=== PATIENT | female | born 1945 | race African-American/Black ===

== ENCOUNTER 2024-04-03 09:16 | Inpatient (IN) | payer OTHER ==
[~2024-04-03] VITALS: Ht 162.6 cm; Wt 98.7 kg
--- NOTE | 2024-04-03 11:06 | ED.PDOC ---
General HPI Comments 79 Y F, BIBA presents to the ED with CC of urinary faculty and lower extremity swelling. Patient states, that she has been experiencing bilateral leg swelling with associated symptoms of difficulty emptying her bladder for days. Patient currently takes bumetanide 2mg daily, denies any other medications. Patient states her lower extremities have become so swollen that she is unable to walk due to their weight. Patient denies fever, cough, chest pain, or N/V/D. Chief Complaint: Urinary Time Seen by MD: 10:50 Primary Care Provider: DEMARCUS Hurt notes: Nurses Notes, Medications, Allergies Allergies: Coded Allergies: NO KNOWN ALLERGIES (Unverified , 04/17/19) Home Meds No Active Prescriptions or Reported Meds Information Source: Patient, Emergency Med Personnel Mode of Arrival: EMS Severity: Moderate Timing: Days Duration: Since onset Prehospital treatment: None Onset: Spontaneous Symptoms: Inability to void History of: None Location: None Modifying factors: None associated signs and symptoms: Dysuria, Inability to Void Past Medical History Past Medical History (Other): Chronic Lower extremity edema, hypothyroid Surgical History: Hysterectomy Surgical History (Other): Thyroid tumor removal Family History Family History: Reviewed,noncontributory to illness, No family hx of Cancer, No family hx of DM, No family hx of Heart jordyn, No family hx of HTN, No family hx ofKidney jordyn, No family hx of Liver jordyn, No family hx of Lung jordyn, No family hx of Stroke Social History Smoker: Non-Smoker Alcohol: Denies ETOH Use Drugs: Denies Drug Use Lives In: Home Constitutional: denies: chills, diaphoresis, fatigue, fever, malaise, sweats, weakness, others EENTM: denies: blurred vision, double vision, ear bleeding, ear discharge, ear drainage, ear pain, ear ringing, eye pain, eye redness, hearing loss, mouth pain, mouth swelling, nasal discharge, nose bleeding, nose congestion, nose pain, photophobia, tearing, throat pain, throat swelling, voice changes, others Respiratory: denies: cough, hemoptysis, orthopnea, SOB at rest, shortness of breath, SOB with excertion, stridor, wheezing, others Cardiovascular: denies: chest pain, dizzy spells, diaphoresis, Dyspnea on exertion, edema, irregular heart beat, left arm pain, lightheadedness, palpitations, PND, syncope, others Gastrointestinal: denies: abdomen distended, abdominal pain, blood streaked bowels, constipated, diarrhea, dysphagia, difficulty swallowing, hematemesis, melena, nausea, poor appetite, poor fluid intake, rectal bleeding, rectal pain, vomiting, others Genitourinary: reports: dysuria; denies: abnormal vagina bleeding, burning, dyspareunia, flank pain, frequency, hematuria, incontinence, pain, , vagina discharge, urgency, others Neurological: denies: dizziness, fainting, headache, left sided numbness, left sided weakness, numbness, paresthesia, pre-existing deficit, right sided numbnes s, right sided weakness, seizure, speech problems, tingling, tremors, weakness, others Musculoskeletal: reports: others (ELENA LEG SWELLING) Integumetry: denies: bruises, change in color, change in hair/nails, dryness, laceration, lesions, lumps, rash, wounds, others Hematologic/Lymphatic: denies: anemia, blood clots, easy bleeding, easy bruising, swollen glands, others Endocrine: denies: excessive hunger, excessive sweating, excessive thirst, excessive urination, flushing, intolerance to cold, intolerance to heat, unexplained weight gain, unexplained weight loss, others Psychiatric: denies: anxiety, bipolar disorder, depression, hopeless, panic disorder, schizophrenia, sleepless, suicidal, others All Other Systems: Reviewed and Negative Physical Exam General Appearance: No Apparent Distress HEENT: Normal ENT Inspection Neck: Full Range of Motion, Normal Inspection Respiratory: Lungs Clear, No Accessory Muscle Use, No Respiratory Distress, Normal Breath Sounds Cardiovascular: No JVD, Regular Rate/Rhythm Breast Exam: Deferred Gastrointestinal: Non Tender, Soft Genitalia: Deferred Pelvic: Deferred Rectal: Deferred Extremities: Leg edema, Pedal edema, Other (4+ pitting edema bilateral lower extremities) Neurologic: Alert (Oriented x4), Normal Affect, Normal Mood, Other (Able to move all extremities. No gross focal deficit.) Cerebellar Function: NOT DONE Reflexes: NOT DONE Skin: Dry, Normal Color, Warm Lymphatic: NOT DONE Was a procedure done? Was a procedure done?: No Differential Diagnosis Kidney stone (Female): Renal failure, Urinary obstruction Other Differential Diagnosis Bladder outlet obstruction, UTI, renal failure, CHF, liver disease, DVT, lymphedema, among others X-Ray, Labs, Meds, VS Vital Signs Date Time Temp Pulse Resp B/P (MAP) Pulse Ox O2 Delivery O2 Flow Rate FiO2 04/03/24 12:42 152/83 04/03/24 12:12 155/73 04/03/24 11:57 98.7 97 17 152/79 (103) 98 98.7 04/03/24 11:57 97 18 98 Room Air 04/03/24 09:18 98.2 105 18 156/85 (108) 98 Lab Test 04/03/24 11:54 Range/Units White Blood Count 7.9 4.4-10.8 10^3/uL Red Blood Count 3.67 L 4.0-5.20 10^6/uL Hemoglobin 11.2 L 12.2-16.2 g/dL Hematocrit 34.5 L 36.0-46.0 % Mean Corpuscular Volume 94.0 80.0-100.0 fL Mean Corpuscular Hemoglobin 30.5 28.0-32.0 pg Mean Corpuscular Hemoglobin Concent 32.4 32.0-36.0 g/dL Red Cell Distribution Width 15.7 H 11.8-14.3 % Platelet Count 244 140-450 10^3/uL Mean Platelet Volume 8.5 6.9-10.8 fL Neutrophils (%) (Auto) 70.5 37.0-80.0 % Lymphocytes (%) (Auto) 21.8 10.0-50.0 % Monocytes (%) (Auto) 4.9 0.0-12.0 % Eosinophils (%) (Auto) 1.9 0.0-7.0 % Basophils (%) (Auto) 0.9 0.0-2.0 % Neutrophils # (Auto) 5.6 1.6-8.6 10 ^3/uL Lymphocytes # (Auto) 1.7 0.4-5.4 10 ^3/uL Monocytes # (Auto) 0.4 0-1.3 10 ^3/uL Eosinophils # (Auto) 0.2 0-0.8 10 ^3/uL Basophils # (Auto) 0.1 0-0.2 10 ^3/uL Nucleated Red Blood Cells 0.1 % Sodium Level 145 136-145 mmol/L Potassium Level 3.7 3.5-5.1 mmol/L Chloride Level 113 H 98-107 mmol/L Carbon Dioxide Level 26 20-31 mmol/L Anion Gap 6 5-15 Blood Urea Nitrogen 17 9-23 mg/dL Creatinine 0.76 0.550-1.02 mg/dL Glomerular Filtration Rate Calc 79 >90 mL/min BUN/Creatinine Ratio 22.4 H 10.0-20.0 Serum Glucose 116 H 74-106 mg/dL Calcium Level 9.7 8.7-10.4 mg/dL Total Bilirubin 0.3 0.2-1.0 mg/dL Aspartate Amino Transferase (AST) 23 13-40 U/L Alanine Aminotransferase (ALT) 20 7-40 U/L Alkaline Phosphatase 151 H 46-116 U/L B-Type Natriuretic Peptide 64.97 0-100 pg/mL Total Protein 5.9 5.7-8.2 g/dL Albumin 3.5 3.2-4.8 g/dL Current Medications Medications (Trade) Dose Ordered Sig/Teddy Route Start Time Stop Time Status Last Admin Bumetanide (Bumex Injection) 2 mg ONCE ONCE IV 04/03/24 11:00 04/03/24 11:01 DC 04/03/24 12:42 Bumetanide (Bumex Injection) 2 mg ONCE ONCE IV 04/03/24 12:15 04/03/24 12:16 DC 04/03/24 12:12 PROCEDURE(s): ABPL - CT AB PEL WO CON-NO ORAL OR IV REASON: urinary obstruction ORDER NUMBER(s): [id number], ACCESSION NUMBER(s): [id number] Exam: CT CT AB PEL WO CON-NO ORAL OR IV History: urinary obstruction Comparison Study: None Technique: Multidetector spiral CT of the abdomen and pelvis was performed from lung bases to pubic symphysis. Imaging was performed without IV contrast. Axial, coronal and sagittal multiplanar reformats were obtained from the axial data set by the technologist. Radiation dose : Abdomen/Pelvis: CTDIvol 23 mGy, DLP 1298 mGy*cm. Findings: Evaluation of solid organs is limited due to lack of intravenous contrast use. Lung Bases: Atelectasis and scarring in the lung bases. Liver: The liver is normal in size. No focal lesions. Gallbladder and biliary Tree: Sludge in the gallbladder. Spleen: Unremarkable Pancreas: The pancreas is grossly normal in appearance. Adrenal Glands: Unremarkable Kidneys: Punctate left lower pole renal calculus. No hydronephrosis. Bladder: Grossly unremarkable for degree of distention. Bowel: The stomach is grossly normal in appearance. Small bowel and colon are normal in caliber and distribution. The appendix is not visualized; however, no secondary findings of acute appendicitis identified. Ascites: Absent Lymphadenopathy: No mesenteric, retroperitoneal or periportal lymphadenopathy. Abdominal wall and Mesentery: Ventral hernia containing bowel. Vasculature: The visualized abdominal aorta is normal in size and caliber. Evaluation of abdominal and pelvic vessels is limited due to lack of intravenous contrast. Pelvic Organs: The uterus is surgically absent. Musculoskeletal: Dextroscoliosis with associated multilevel degenerative disease. Lucent lesion in the L2 vertebral body could represent a hemangioma. IMPRESSION: 1. Punctate nonobstructive left lower pole renal calculus. No hydronephrosis. Sludge in the gallbladder. Ventral hernia containing bowel. Possible hemangioma in the L2 vertebral body. This could be further evaluated with MRI of the lumbar spine with contrast. Radiation optimization: All CT scans at this facility use at least one of these dose optimization techniques: Automated exposure control mA and/or kV adjustment per patient size (includes targeted exams where dose is matched to clinical indication) or iterative reconstruction. HS:Y EDURE(s): BLDVT - BiLat Lower DVT REASON: edema ORDER NUMBER(s): [id number], ACCESSION NUMBER(s): [id number] Bilateral lower extremity venous duplex Clinical History: edema Comparison: None Technique: Duplex Doppler evaluation of the deep venous systems of both lower extremities from the common femoral veins to the popliteal veins including color Doppler and spectral/pulsed waveform analysis was performed. Findings: RIGHT SIDE: The common femoral vein demonstrates appropriate compressibility and waveform variability. There is compressibility/patency of the great saphenous vein at the proximal thigh. The femoral vein demonstrates appropriate compressibility and waveform variability. The deep femoral vein demonstrates appropriate compressibility and waveform v ariability. The popliteal vein demonstrates appropriate compressibility and waveform variability. There is normal compressibility at the tibioperoneal trunk. LEFT SIDE: The common femoral vein demonstrates appropriate compressibility and waveform variability. There is compressibility/patency of the great saphenous vein at the proximal thigh. The femoral vein demonstrates appropriate compressibility and waveform variability. The deep femoral vein demonstrates appropriate compressibility and waveform v ariability. The popliteal vein demonstrates appropriate compressibility and waveform variability. There is normal compressibility at the tibioperoneal trunk. Impression: 1. No right or left femoropopliteal venous thrombosis. HS:Y X-Ray, Labs, Meds, VS Comment 79-year-old female with a history of chronic lower extremity edema and thyroid disease brought in by EMS complaining of inability to ambulate due to severe l ower extremity edema, associated with difficulty emptying her bladder. Vitals remarkable for heart rate 105, BP 156/85 Exam remarkable for 4+ pitting edema bilateral lower extremities Rhythm strip independently interpreted by me: Sinus tach, rate 105, no ectopy. CT abdomen and pelvis: IMPRESSION: 1. Punctate nonobstructive left lower pole renal calculus. No hydronephrosis. Sludge in the gallbladder. Ventral hernia containing bowel. Possible hemangioma in the L2 vertebral body. This could be further evaluated with MRI of the lumbar spine with contrast. Lower extremity ultrasound negative for DVT CBC, CMP unremarkable for any abnormality of acute significance. Patient treated with the following in the ED: Bumex 2 mg IV On re-evaluation, patient denies pain and vitals are unremarkable. Plan is to admit the patient for diuresis and possible urology evaluation. Time of 1ST Reevaluation: 11:20 Reevaluation 1ST: Unchanged Patient Education/Counseling: Diagnosis, Treatment Family Education/Counseling: No Family Present Departure 1 Departure Time of Disposition: 12:54 Impression: Primary Impression: Lower extremity edema Disposition: 09 ADMITTED INPATIENT Admit to: Med Surg Condition: Fair e-Prescriptions No Active Prescriptions or Reported Meds Critical Care Note Critical Care Time?: No Stability Stability form required: No Heart Score Heart Score: Heart Score Response (Comments) Value History N/A 0 EKG N/A 0 Age N/A 0 Risk Factors N/A 0 Troponin N/A 0 Total 0 I personally scribed for CIARA TEIXEIRA MD ([email or web address]) on 04/03/24 at 11:06. Electronically submitted by Payal Cameron ([email or web address]). I personally scribed for CIARA TEIXEIRA MD ([email or web address]) on 04/03/24 at 11:31. Electronically submitted by Payal Cameron ([email or web address]). I personally scribed for CIARA TEIXEIRA MD ([email or web address]) on 04/03/24 at 14:02. Electronically submitted by Payal Cameron ([email or web address]). I personally scribed for CIARA TEIXEIRA MD ([email or web address]) on 04/03/24 at 16:49. Electronically submitted by Payal Cameron ([email or web address]). CIARA TEIXEIRA MD Apr 03, 2024 11:06
--- NOTE | 2024-04-03 11:46 | DVH ---
Bilateral lower extremity venous duplex Clinical History: edema Comparison: None Technique: Duplex Doppler evaluation of the deep venous systems of both lower extremities from the common femora l veins to the popliteal veins including color Doppler and spectral/pulsed waveform analysis was perf ormed. Findings: RIGHT SIDE: The common femoral vein demonstrates appropriate compressibility and waveform variability. There is compressibility/patency of the great saphenous vein at the proximal thigh. The femoral vein demonstrates appropriate compressibility and waveform variability. The deep femoral vein demonstrates appropriate compressibility and waveform variability. The popliteal vein demonstrates appropriate compressibility and waveform variability. There is normal compressibility at the tibioperoneal trunk. LEFT SIDE: The common femoral vein demonstrates appropriate compressibility and waveform variability. There is compressibility/patency of the great saphenous vein at the proximal thigh. The femoral vein demonstrates appropriate compressibility and waveform variability. The deep femoral vein demonstrates appropriate compressibility and waveform variability. The popliteal vein demonstrates appropriate compressibility and waveform variability. There is normal compressibility at the tibioperoneal trunk. Impression: 1. No right or left femoropopliteal venous thrombosis. HS:Y
--- NOTE | 2024-04-03 11:56 | DVH ---
Exam: CT CT AB PEL WO CON-NO ORAL OR IV History: urinary obstruction Comparison Study: None Technique: Multidetector spiral CT of the abdomen and pelvis was performed from lung bases to pubic symphysis. Imaging was performed without IV contrast. Axial, coronal and sagittal multiplanar reform ats were obtained from the axial data set by the technologist. Radiation dose : Abdomen/Pelvis: CTDIvol 23 mGy, DLP 1298 mGy*cm. Findings: Evaluation of solid organs is limited due to lack of intravenous contrast use. Lung Bases: Atelectasis and scarring in the lung bases. Liver: The liver is normal in size. No focal lesions. Gallbladder and biliary Tree: Sludge in the gallbladder. Spleen: Unremarkable Pancreas: The pancreas is grossly normal in appearance. Adrenal Glands: Unremarkable Kidneys: Punctate left lower pole renal calculus. No hydronephrosis. Bladder: Grossly unremarkable for degree of distention. Bowel: The stomach is grossly normal in appearance. Small bowel and colon are normal in caliber and d istribution. The appendix is not visualized; however, no secondary findings of acute appendicitis id entified. Ascites: Absent Lymphadenopathy: No mesenteric, retroperitoneal or periportal lymphadenopathy. Abdominal wall and Mesentery: Ventral hernia containing bowel. Vasculature: The visualized abdominal aorta is normal in size and caliber. Evaluation of abdominal a nd pelvic vessels is limited due to lack of intravenous contrast. Pelvic Organs: The uterus is surgically absent. Musculoskeletal: Dextroscoliosis with associated multilevel degenerative disease. Lucent lesion in th e L2 vertebral body could represent a hemangioma. IMPRESSION: 1. Punctate nonobstructive left lower pole renal calculus. No hydronephrosis. Sludge in the gallblad quan. Ventral hernia containing bowel. Possible hemangioma in the L2 vertebral body. This could be fu rther evaluated with MRI of the lumbar spine with contrast. Radiation optimization: All CT scans at this facility use at least one of these dose optimization opal hniques: Automated exposure control mA and/or kV adjustment per patient size (includes targeted exams where dose is matched to clinical indication) or iterative reconstruction. HS:Y
[2024-04-03] MEDS: BUMETANIDE 2.5mg/10ml (0.25 mg/ml) INJ IV ONE ×2 (12:12)
[2024-04-03 12:15] LABS: Basophils # (auto) 0.1 10 ^3/uL (0-0.2); Basophils % (auto) 0.9 % (0.0-2.0); Eosinophils # (auto) 0.2 10 ^3/uL (0-0.8); Eosinophils % (auto) 1.9 % (0.0-7.0); Hematocrit 34.5 % (36.0-46.0); Hemoglobin 11.2 g/dL (12.2-16.2); Lymphocytes # (auto) 1.7 10 ^3/uL (0.4-5.4); Lymphocytes % (auto) 21.8 % (10.0-50.0); Mean Corpuscular Hemoglobin 30.5 pg (28.0-32.0); Mean Corpuscular Hgb Conc. 32.4 g/dL (32.0-36.0); Monocytes # (auto) 0.4 10 ^3/uL (0-1.3); Monocytes % (auto) 4.9 % (0.0-12.0); Neutrophils # (auto) 5.6 10 ^3/uL (1.6-8.6); Neutrophils % (auto) 70.5 % (37.0-80.0); Nucleated Red Blood Cells % 0.1 %; Platelet Count (auto) 244 10^3/uL (140-450); Red Blood Cells 3.67 10^6/uL (4.0-5.20); Red Cell Distribution Width 15.7 % (11.8-14.3); White Blood Cell 7.9 10^3/uL (4.4-10.8)
[2024-04-03 12:30] LABS: Alanine Aminotransferase 20 U/L (7-40); Albumin 3.5 g/dL (3.2-4.8); Alkaline Phosphatase 151 U/L (46-116); Anion Gap 6 (5-15); Aspartate Aminotransferase 23 U/L (13-40); BUN/Creatinine Ratio 22.4 (10.0-20.0); Bilirubin, Total 0.3 mg/dL (0.2-1.0); Blood Urea Nitrogen 17 mg/dL (9-23); Calcium 9.7 mg/dL (8.7-10.4); Carbon Dioxide 26 mmol/L (20-31); Chloride 113 mmol/L (98-107); Glucose 116 mg/dL (74-106); Potassium 3.7 mmol/L (3.5-5.1); Sodium 145 mmol/L (136-145); Total Protein 5.9 g/dL (5.7-8.2)
[2024-04-03 17:10] VITALS: PULSE 78; RESP 17; O2SAT 98
[2024-04-03 17:22] LABS: Urine Bacteria MANY /hpf (None Seen); Urine Blood Negative /uL (Negative); Urine Clarity Turbid (Clear); Urine Color Colorless (Yellow); Urine Mucus FEW (None Seen); Urine Protein, UAD Negative (Negative); Urine Specific Gravity 1.007 (1.001-1.035); Urine Squamous Epithelial Cell FEW /hpf (<5); Urine Urobilinogen Normal (Negative); Urine WBC 50 /hpf (0 - 5)
[2024-04-03 19:30] VITALS: PULSE 77; RESP 16; O2SAT 98
--- NOTE | 2024-04-03 22:00 | DVHHPRES ---
History of Present Illness Resident Creating Document: JASPREET BELLAMY RESIDENT History of Present Illness This is a 79-year-old female with past medical history of multiple sclerosis, hypothyroidism presented to the ED with a chief complaint of bilateral leg swelling and dysuria for 5 days prior to this admission. The patient states that leg swelling started 2 years ago progressive in nature and not able to walk, wheel chair bound , difficulty in urination and associated with painful burning sensation of foul-smelling urine for last 4 days. She also mentioned that she underwent total abdominal hysterectomy and removal of ovarian tumor in 2014 and after that she started progressive weakness and swelling in bilateral lower limbs. She denies fever, chills, shortness of breath, dizziness, diaphoresis, nausea, vomiting or any sick contact. Past Medical History Multiple sclerosis, hypothyroidism Past Surgical History Hysterectomy with bilateral oophorectomy. Family History None Past Social History Lives with grand son Non smoker, non alcoholic and never tried any drugs. Review of Systems Constitutional: No: Fever, Chills, Sweats, Weakness, Malaise, Other Eyes: No: Pain, Vision change, Conjunctivae inflammation, Eyelid inflammation, Other, Redness ENT: No: Ear pain, Ear discharge, Nose pain, Nose discharge, Nose congestion, Mouth pain, Mouth swelling, Throat pain, Throat swelling, Other Respiratory: No: Cough, Dry, Shortness of breath, SOB with excertion, Wheezing, Hemoptysis, Pleuritic Pain, Sputum, Wheezing, Other Cardiovascular: No: Chest Pain, Palpitations, Orthopnea, Paroxysmal Noc. Dyspnea, Edema, Lt Headedness, Other Gastrointestinal: No: Nausea, Vomiting, Abdominal Pain, Diarrhea, Constipation, Melena, Hematochezia, Other Genitourinary: Dysuria, Frequency, Incontinence; No Hematuria, No Retention, No Other Musculoskeletal: leg pain; No: other, neck pain, shoulder pain, arm pain, back pain, hand pain, foot pain Skin: No: Rash, Lesions, Jaundice, Bruising, Other Neurological: No: Weakness, Numbness, Incoordination, Change in speech, Confusion, Seizures, Other Allergies: Coded Allergies: NO KNOWN ALLERGIES (Unverified , 04/17/19) Exam Vital Signs Vital Signs Date Time Temp Pulse Resp B/P (MAP) Pulse Ox O2 Delivery O2 Flow Rate FiO2 04/03/24 19:30 97.9 77 16 135/60 (85) 98 97.9 04/03/24 17:10 Room Air* 0 21 Exam Physical examination: General Appearance: Alert, Oriented X3, Cooperative, No acute distress HEENT: Atraumatic, PERRLA, EOMI, Mucous membrane moist/pink Respiratory: Clear to auscultation, Normal air movement Cardiovascular: Regular rate, Normal S1, Normal S2, No murmurs, no chest wall tenderness Abdominal: Normal bowel sounds, Soft, No tenderness, No hepatospenomegaly, No masses Extremities: Weakness and swelling of lower limbs, non pitting edema ++, No clubbing, No cyanosis, Normal pulses. Skin: No rashes, No breakdown, No significant lesion Neuro: Wheel chair bound, Normal speech, Strength at 5/5 X2 ext and 2/5 x 2 ext ,Normal tone, Sensation intact. Psych/Mental Status: Mental status NL, Mood NL Labs/Xrays Labs Test 04/03/24 17:08 04/03/24 11:54 Range/Units Urine Color Colorless Yellow Urine Clarity Turbid H Clear Urine pH 7.0 5.0-9.0 Urine Specific [place] 1.007 1.001-1.035 Urine Protein Negative Negative Urine Ketones Negative Negative Urine Blood Negative Negative /uL Urine Nitrite Negative Negative Urine Bilirubin Negative Negative Urine Urobilinogen Normal Negative mg/dL Urine Leukocyte Esterase 3+ Negative /uL Urine RBC 16 0 - 4 /hpf Urine WBC 50 0 - 5 /hpf Urine Squamous Epithelial Cells Few <5 /hpf Urine Bacteria Many H None Seen /hpf Urine Mucus Few None Seen Urine Glucose Normal Normal mg/dL White Blood Count 7.9 4.4-10.8 10^3/uL Red Blood Count 3.67 L 4.0-5.20 10^6/uL Hemoglobin 11.2 L 12.2-16.2 g/dL Hematocrit 34.5 L 36.0-46.0 % Mean Corpuscular Volume 94.0 80.0-100.0 fL Mean Corpuscular Hemoglobin 30.5 28.0-32.0 pg Mean Corpuscular Hemoglobin Concent 32.4 32.0-36.0 g/dL Red Cell Distribution Width 15.7 H 11.8-14.3 % Platelet Count 244 140-450 10^3/uL Mean Platelet Volume 8.5 6.9-10.8 fL Neutrophils (%) (Auto) 70.5 37.0-80.0 % Lymphocytes (%) (Auto) 21.8 10.0-50.0 % Monocytes (%) (Auto) 4.9 0.0-12.0 % Eosinophils (%) (Auto) 1.9 0.0-7.0 % Basophils (%) (Auto) 0.9 0.0-2.0 % Neutrophils # (Auto) 5.6 1.6-8.6 10 ^3/uL Lymphocytes # (Auto) 1.7 0.4-5.4 10 ^3/uL Monocytes # (Auto) 0.4 0-1.3 10 ^3/uL Eosinophils # (Auto) 0.2 0-0.8 10 ^3/uL Basophils # (Auto) 0.1 0-0.2 10 ^3/uL Nucleated Red Blood Cells 0.1 % Sodium Level 145 136-145 mmol/L Potassium Level 3.7 3.5-5.1 mmol/L Chloride Level 113 H 98-107 mmol/L Carbon Dioxide Level 26 20-31 mmol/L Anion Gap 6 5-15 Blood Urea Nitrogen 17 9-23 mg/dL Creatinine 0.76 0.550-1.02 mg/dL Glomerular Filtration Rate Calc 79 >90 mL/min BUN/Creatinine Ratio 22.4 H 10.0-20.0 Serum Glucose 116 H 74-106 mg/dL Calcium Level 9.7 8.7-10.4 mg/dL Total Bilirubin 0.3 0.2-1.0 mg/dL Aspartate Amino Transferase (AST) 23 13-40 U/L Alanine Aminotransferase (ALT) 20 7-40 U/L Alkaline Phosphatase 151 H 46-116 U/L B-Type Natriuretic Peptide 64.97 0-100 pg/mL Total Protein 5.9 5.7-8.2 g/dL Albumin 3.5 3.2-4.8 g/dL Assessment/Plan Assessment/Plan Assessment and plan: # Acute cystitis - U/A is consistent with UTI - Ordered urine bacterial culture - IV ceftriaxone 1 gm daily. # Swelling of the lower limb, ruled out DVT - Doppler of the lower extremity revealed no right or left femoropopliteal venous thrombosis. - Continue bumex 2 mg p.o. b.i.d. # Nonobstructing renal stone - CT abdomen pelvis revealed Punctate nonobstructive left lower pole renal calculus without hydronephrosis - Outpatient follow up with Urology. # Chronic hypothyroidism - Levothyroxine 50mcg at q.a.m. # PUD prophylaxis - Pepcid 20 mg p.o daily. # DVT prophylaxis - Lovenox 40 mg SC daily. Goal of care discussed with the patient for more than 20 minutes full code Plan discussed with Dr. Mcfarlane Plan discussed with: Patient, Other My Orders Orders - JASPREET BELLAMY Procedure Category Date Status Time Admit ADMIT 04/03/24 Transmitted 21:27 Date of Service: Apr 03, 2024 Billing Provider: JACK MCFARLANE MD Common Visit Codes: 36124-[id number] INP/OBS CARE (HIGH) Secondary Visit Codes: 98598-[id number] CARE PLAN 30 MINUTES JASPREET BELLAMY Apr 03, 2024 22:00 JACK MCFARLANE MD Apr 07, 2024 19:54
[2024-04-03] MEDS: cefTRIAXone 1GM/50ML D5W 50 ML IV ONE (23:07)
[2024-04-03 23:41] VITALS: PULSE 74; RESP 20; TEMP 98; O2SAT 100
[2024-04-04] VITALS (7 sets, daily range): BP systolic 123–160; BP diastolic 47–80; PULSE 72–92; RESP 15–18; TEMP 97.5–98.3; O2SAT 95–100
[2024-04-04] MEDS: LEVOTHYROXINE SODIUM 50 MCG TAB PO SCH (05:12)
[2024-04-04] MEDS: BUMETANIDE 1 MG TAB PO SCH (05:12)
[2024-04-04] MEDS: FAMOTIDINE 20 MG TAB PO SCH (09:07)
[2024-04-04] MEDS: ENOXAPARIN SOD 40 MG/0.4 ML SYRINGE SC SCH (09:07)
--- NOTE | 2024-04-04 17:52 | DVHPNRES ---
Progress Note Date Seen: Apr 04, 2024 Resident Creating Document: DOREEN MORRISON RESIDENT Medical Necessity Reason Pt with a Central, PICC or Fol: No Subjective Review of Systems This is a 79-year-old female with past medical history of multiple sclerosis, hypothyroidism presented to the ED with a chief complaint of bilateral leg swelling and dysuria for 5 days prior to this admission. The patient states that leg swelling started 2 years ago progressive in nature and not able to walk, wheel chair bound , difficulty in urination and associated with painful burning sensation of foul-smelling urine for last 5 days. She also mentioned that she underwent total abdominal hysterectomy and removal of ovarian tumor in 2014 and after that she started progressive weakness and swelling in bilateral lower limbs. She denies fever, chills, shortness of breath, dizziness, diaphoresis, nausea, vomiting or any sick contact. Urinalysis revealed leukocyte esterase 3+, WBC 56, RBC 16, bacteria many. TSH 1.76. CT abdomen revealed-Punctate nonobstructive left lower pole renal calculus. No hydronephrosis. Sludge in the gallbladder. Ventral hernia containing bowel. Possible hemangioma in the L2 vertebral body. This could be further evaluated with MRI of the lumbar spine with contrast. Bilateral lower extremity venous Doppler negative for DVT. Past Medical History-Multiple sclerosis, hypothyroidism Past Surgical History-Hysterectomy with bilateral oophorectomy. Family History-None Past Social History-Lives with grand son, Non smoker, non alcoholic and never tried any drugs. Allergy- NKDA Patient was seen today at the bedside. Cardiovascular- deny acute chest pain or shortness of breath or cough or palpitation Respiratory- denies cough or short of breath or wheezing Gastrointestinal- denies any rectal bleeding, nausea or vomiting Musculoskeletal-denies acute joint swelling or tenderness or redness Neurological- denies acute dysarthria, dysphagia, change in vision Psychiatry- denies depression or SI or HI Skin- denies acute rash or purpura Objective vital signs Vital Sign Date Time Temp Pulse Resp B/P (MAP) Pulse Ox O2 Delivery O2 Flow Rate FiO2 04/04/24 17:00 97.6 89 16 125/72 (89) 96 97.6 04/04/24 08:00 Room Air* 0 21 Total Intake and Output 04/03/24 04/03/24 04/04/24 15:00 23:00 07:00 Output Total 2500 ml Balance -2500 ml medications Current Medications Medications Dose Ordered Sig/Teddy Route Start Time Stop Time Status Last Admin Dose Admin Ceftriaxone Sodium 50 ml @ 100 mls/hr DAILY@2100 IV 04/04/24 21:00 Bumetanide 2 mg BIDD PO 04/04/24 06:00 04/04/24 05:12 2 MG Levothyroxine Sodium 50 mcg QAM@0600 PO 04/04/24 06:00 04/04/24 05:12 50 MCG Famotidine 20 mg DAILY PO 04/04/24 10:00 04/04/24 09:07 20 MG Enoxaparin Sodium 40 mg DAILY SC 04/04/24 10:00 04/04/24 09:07 40 MG Examination General examination-awake, alert, oriented, conversant HEENT- PEERLA, no acute nasal discharge Cardiovascular- S1-S2 audible, rate and rhythm regular, no murmur Respiratory- CTAB, no wheeze or rhonchi Gastrointestinal-nontender, bowel sound+. Nondistended Musculoskeletal-no acute joint swelling or tenderness or redness# Lower extremity- bilateral leg edema+++ Neurological- cranial nerves intact, no acute dysarthria or dysphagia Psychiatry- denies depression or SI or HI Skin-discoloration of skin of the bilateral lower extremity laboratory and microbiology Laboratory Tests 04/03/24 11:54 Test 04/03/24 11:54 Range/Units Serum Glucose 116 H 74-106 mg/dL Problem List/Assessment/Plan Problem List/Assessment/Plan # Acute cystitis # Swelling of the lower limb, likely due to lymphedema ruled out DVT # Nonobstructing renal stone # Chronic hypothyroidism #Obesity # multiple sclerosis-no acute exacerbation Urinalysis revealed leukocyte esterase 3+, WBC 56, RBC 16, bacteria many. TSH 1.76. CT abdomen revealed-Punctate nonobstructive left lower pole renal calculus. No hydronephrosis. Sludge in the gallbladder. Ventral hernia containing bowel. Possible hemangioma in the L2 vertebral body. This could be further evaluated with MRI of the lumbar spine with contrast. Bilateral lower extremity venous Doppler negative for DVT Continue ceftriaxone 1 g IV daily Continue bumetanide 2 mg p.o. b.i.d. Continue Lovenox 40 mg subcutaneously daily Continue famotidine 20 mg p.o. daily Continue levothyroxine 50 mcg p.o. q.a.m. Goals of care/advance care planning; FULL CODE; discussed with the patient >15 minutes PUD prophylaxis: Famotidine DVT prophylaxis: Lovenox Plan discussed with Dr. Tavera, nursing staff, patient Total time spent on patient evaluation, chart review, assessment and plan, discussion discussion >30 minutes Plan discussed with: Patient Plan discussed with: Patient, Other Date of Service: Apr 04, 2024 Billing Provider: DISHA TAVERA MD Common Visit Codes: [id number] INP/OBS CARE(HIGH) DOREEN MORRISON RESIDENT Apr 04, 2024 17:52 DISHA TAVERA MD Apr 07, 2024 09:02
[2024-04-04] MEDS: cefTRIAXone 1GM/50ML D5W 50 ML IV SCH (21:06)
[2024-04-05] VITALS (8 sets, daily range): BP systolic 114–146; BP diastolic 55–71; PULSE 78–96; RESP 16–19; TEMP 97.6–98.5; O2SAT 95–100
[2024-04-05 06:51] LABS: Chloride 105 mmol/L (98-107); Potassium 3.2 mmol/L (3.5-5.1); Sodium 142 mmol/L (136-145)
[2024-04-05 06:52] LABS: Anion Gap 9 (5-15); Calcium 9.6 mg/dL (8.7-10.4); Carbon Dioxide 28 mmol/L (20-31)
[2024-04-05 06:57] LABS: BUN/Creatinine Ratio 18.1 (10.0-20.0); Blood Urea Nitrogen 15 mg/dL (9-23); Glucose 98 mg/dL (74-106)
[2024-04-05] MEDS: POTASSIUM CHL 20 Meq TABLET PO ONE (10:08)
--- NOTE | 2024-04-05 16:25 | DVHPNRES ---
Progress Note Date Seen: Apr 05, 2024 Resident Creating Document: MARYJANE MANDEL RESIDENT Medical Necessity Reason Pt with a Central, PICC or Fol: No Subjective Review of Systems This is a 79-year-old female with past medical history of multiple sclerosis, hypothyroidism presented to the ED with a chief complaint of bilateral leg swelling and dysuria for 5 days prior to this admission. The patient states that leg swelling started 2 years ago progressive in nature and not able to walk, wheel chair bound , difficulty in urination and associated with painful burning sensation of foul-smelling urine for last 5 days. She also mentioned that she underwent total abdominal hysterectomy and removal of ovarian tumor in 2014 and after that she started progressive weakness and swelling in bilateral lower limbs. She denies fever, chills, shortness of breath, dizziness, diaphoresis, nausea, vomiting or any sick contact. Urinalysis revealed leukocyte esterase 3+, WBC 56, RBC 16, bacteria many. TSH 1.76. CT abdomen revealed-Punctate nonobstructive left lower pole renal calculus. No hydronephrosis. Sludge in the gallbladder. Ventral hernia containing bowel. Possible hemangioma in the L2 vertebral body. This could be further evaluated with MRI of the lumbar spine with contrast. Bilateral lower extremity venous Doppler negative for DVT. Past Medical History-Multiple sclerosis, hypothyroidism Past Surgical History-Hysterectomy with bilateral oophorectomy. Family History-None Past Social History-Lives with grand son, Non smoker, non alcoholic and never tried any drugs. Patient seen and examined at bedside, feeling better than yesterday, bilateral leg edema, improved patient is on Bumex 2 mg, b.i.d. consult PT for mobilization, possible discharge tomorrow. Allergy- NKDA Patient was seen today at the bedside. Cardiovascular- deny acute chest pain or shortness of breath or cough or palpitation Respiratory- denies cough or short of breath or wheezing Gastrointestinal- denies any rectal bleeding, nausea or vomiting Musculoskeletal-denies acute joint swelling or tenderness or redness Neurological- denies acute dysarthria, dysphagia, change in vision Psychiatry- denies depression or SI or HI Skin- denies acute rash or purpura Objective vital signs Vital Sign Date Time Temp Pulse Resp B/P (MAP) Pulse Ox O2 Delivery O2 Flow Rate FiO2 04/05/24 13:00 98.3 78 18 129/68 (88) 97 98.3 04/05/24 08:00 Room Air* 0 21 Total Intake and Output 04/04/24 04/04/24 04/05/24 15:00 23:00 07:00 Intake Total 200 ml 800 ml Output Total 200 ml 1500 ml Balance 0 ml -700 ml medications Current Medications Medications Dose Ordered Sig/Teddy Route Start Time Stop Time Status Last Admin Dose Admin Ceftriaxone Sodium 50 ml @ 100 mls/hr DAILY@2100 IV 04/04/24 21:00 04/04/24 21:06 100 MLS/HR Bumetanide 2 mg BIDD PO 04/04/24 06:00 04/05/24 05:21 2 MG Levothyroxine Sodium 50 mcg QAM@0600 PO 04/04/24 06:00 04/05/24 05:20 50 MCG Famotidine 20 mg DAILY PO 04/04/24 10:00 04/05/24 09:05 20 MG Enoxaparin Sodium 40 mg DAILY SC 04/04/24 10:00 04/05/24 09:08 40 MG Bisacodyl 5 mg BID PO 04/05/24 22:00 Examination General examination-awake, alert, oriented, conversant HEENT- PEERLA, no acute nasal discharge Cardiovascular- S1-S2 audible, rate and rhythm regular, no murmur Respiratory- CTAB, no wheeze or rhonchi Gastrointestinal-nontender, bowel sound+. Nondistended Musculoskeletal-no acute joint swelling or tenderness or redness# Lower extremity- bilateral leg edema+++ Neurological- cranial nerves intact, no acute dysarthria or dysphagia Psychiatry- denies depression or SI or HI Skin-discoloration of skin of the bilateral lower extremity laboratory and microbiology Laboratory Tests 04/05/24 06:02 04/03/24 11:54 Test 04/05/24 06:02 Range/Units Serum Glucose 98 74-106 mg/dL Microbiology Date/Time Source Procedure Growth Status 04/03/24 17:08 Voided Urine Urine Culture - Preliminary Resulted Problem List/Assessment/Plan Problem List/Assessment/Plan # Acute cystitis # Swelling of the lower limb, likely due to lymphedema ruled out DVT # Nonobstructing renal stone # Chronic hypothyroidism #Obesity # multiple sclerosis-no acute exacerbation Urinalysis revealed leukocyte esterase 3+, WBC 56, RBC 16, bacteria many. TSH 1.76. CT abdomen revealed-Punctate nonobstructive left lower pole renal calculus. No hydronephrosis. Sludge in the gallbladder. Ventral hernia containing bowel. Possible hemangioma in the L2 vertebral body. This could be further evaluated with MRI of the lumbar spine with contrast. Bilateral lower extremity venous Doppler negative for DVT Continue ceftriaxone 1 g IV daily Continue bumetanide 2 mg p.o. b.i.d. Continue Lovenox 40 mg subcutaneously daily Continue famotidine 20 mg p.o. daily Continue levothyroxine 50 mcg p.o. q.a.m. Goals of care/advance care planning; FULL CODE; discussed with the patient 19 minutes PUD prophylaxis: Famotidine DVT prophylaxis: Lovenox Plan discussed with Dr. Tavera, nursing staff, patient Plan discussed with: Patient My Orders My Orders Orders - MARYJANE MANDEL Procedure Category Date Status Time Pt Request For Service PT 04/05/24 Logged 13:48 Basic Metabolic Panel LAB 04/06/24 Verified 04:00 Complete Blood Count LAB 04/06/24 Verified 04:00 Bisacodyl Ec Tablet PHA 04/05/24 In Process (Dulcolax Ec Tablet) 22:00 Date of Service: Apr 05, 2024 Billing Provider: DISHA TAVERA MD Common Visit Codes: [id number] INP/OBS CARE(HIGH) MARYJANE MANDEL Apr 05, 2024 16:25 DISHA TAVERA MD Apr 07, 2024 09:03
[2024-04-05] MEDS: BISACODYL 5 MG EC TAB PO SCH (21:28)
[2024-04-06] VITALS (8 sets, daily range): BP systolic 114–140; BP diastolic 56–73; PULSE 78–92; RESP 15–18; TEMP 97.8–98.6; O2SAT 94–100
[2024-04-06 06:15] LABS: Basophils # (auto) 0.1 10 ^3/uL (0-0.2); Basophils % (auto) 0.6 % (0.0-2.0); Eosinophils # (auto) 0.3 10 ^3/uL (0-0.8); Eosinophils % (auto) 3.5 % (0.0-7.0); Hematocrit 38.3 % (36.0-46.0); Hemoglobin 12.8 g/dL (12.2-16.2); Lymphocytes # (auto) 2.4 10 ^3/uL (0.4-5.4); Lymphocytes % (auto) 24.3 % (10.0-50.0); Mean Corpuscular Hemoglobin 30.1 pg (28.0-32.0); Mean Corpuscular Hgb Conc. 33.4 g/dL (32.0-36.0); Monocytes # (auto) 0.7 10 ^3/uL (0-1.3); Monocytes % (auto) 7.6 % (0.0-12.0); Neutrophils # (auto) 6.3 10 ^3/uL (1.6-8.6); Nucleated Red Blood Cells % 0.2 %; Platelet Count (auto) 291 10^3/uL (140-450); Red Blood Cells 4.25 10^6/uL (4.0-5.20); Red Cell Distribution Width 15.3 % (11.8-14.3); White Blood Cell 9.8 10^3/uL (4.4-10.8)
[2024-04-06 06:22] LABS: Chloride 105 mmol/L (98-107); Potassium 3.8 mmol/L (3.5-5.1); Sodium 143 mmol/L (136-145)
[2024-04-06 06:23] LABS: Anion Gap 8 (5-15); Calcium 9.8 mg/dL (8.7-10.4); Carbon Dioxide 30 mmol/L (20-31)
[2024-04-06 06:28] LABS: BUN/Creatinine Ratio 24.8 (10.0-20.0)
[2024-04-06 06:36] LABS: Blood Urea Nitrogen 25 mg/dL (9-23); Glucose 112 mg/dL (74-106)
--- NOTE | 2024-04-06 16:11 | DVHPNRES ---
Progress Note Date Seen: Apr 06, 2024 Resident Creating Document: DOREEN MORRISON RESIDENT Medical Necessity Reason Pt with a Central, PICC or Fol: No Subjective Review of Systems This is a 79-year-old female with past medical history of multiple sclerosis, hypothyroidism presented to the ED with a chief complaint of bilateral leg swelling and dysuria for 5 days prior to this admission. The patient states that leg swelling started 2 years ago progressive in nature and not able to walk, wheel chair bound , difficulty in urination and associated with painful burning sensation of foul-smelling urine for last 5 days. She also mentioned that she underwent total abdominal hysterectomy and removal of ovarian tumor in 2014 and after that she started progressive weakness and swelling in bilateral lower limbs. She denies fever, chills, shortness of breath, dizziness, diaphoresis, nausea, vomiting or any sick contact. Urinalysis revealed leukocyte esterase 3+, WBC 56, RBC 16, bacteria many. TSH 1.76. CT abdomen revealed-Punctate nonobstructive left lower pole renal calculus. No hydronephrosis. Sludge in the gallbladder. Ventral hernia containing bowel. Possible hemangioma in the L2 vertebral body. This could be further evaluated with MRI of the lumbar spine with contrast. Bilateral lower extremity venous Doppler negative for DVT. Past Medical History-Multiple sclerosis, hypothyroidism Past Surgical History-Hysterectomy with bilateral oophorectomy. Family History-None Past Social History-Lives with grand son, Non smoker, non alcoholic and never tried any drugs. Allergy- NKDA Patient was seen today at the bedside. Cardiovascular- deny acute chest pain or shortness of breath or cough or palpitation Respiratory- denies cough or short of breath or wheezing Gastrointestinal- denies any rectal bleeding, nausea or vomiting Musculoskeletal-denies acute joint swelling or tenderness or redness Neurological- denies acute dysarthria, dysphagia, change in vision Psychiatry- denies depression or SI or HI Skin- denies acute rash or purpura Patient was seen today for clinical evaluation. Less than chart reviewed. Hypokalemia replenished yesterday. Patient reports feeling okay. Patient denied SNF for physical therapy. Ordered home health for physical therapy. Objective vital signs Vital Sign Date Time Temp Pulse Resp B/P (MAP) Pulse Ox O2 Delivery O2 Flow Rate FiO2 04/06/24 13:00 97.8 87 17 140/66 (90) 94 97.8 04/06/24 08:00 Room Air* 0 21 Total Intake and Output 04/05/24 04/05/24 04/06/24 15:00 23:00 07:00 Intake Total 900 ml 1600 ml Output Total 1300 ml 1100 ml Balance -400 ml 500 ml medications Current Medications Medications Dose Ordered Sig/Teddy Route Start Time Stop Time Status Last Admin Dose Admin Ceftriaxone Sodium 50 ml @ 100 mls/hr DAILY@2100 IV 04/04/24 21:00 04/05/24 21:28 100 MLS/HR Bumetanide 2 mg BIDD PO 04/04/24 06:00 04/06/24 05:39 2 MG Levothyroxine Sodium 50 mcg QAM@0600 PO 04/04/24 06:00 04/06/24 05:39 50 MCG Famotidine 20 mg DAILY PO 04/04/24 10:00 04/06/24 09:57 20 MG Enoxaparin Sodium 40 mg DAILY SC 04/04/24 10:00 04/06/24 09:57 40 MG Bisacodyl 5 mg BID PO 04/05/24 22:00 04/06/24 09:57 5 MG Examination General examination-awake, alert, oriented, conversant HEENT- PEERLA, no acute nasal discharge Cardiovascular- S1-S2 audible, rate and rhythm regular, no murmur Respiratory- CTAB, no wheeze or rhonchi Gastrointestinal-nontender, bowel sound+. Nondistended Musculoskeletal-no acute joint swelling or tenderness or redness# Lower extremity- bilateral leg edema+++ Neurological- cranial nerves intact, no acute dysarthria or dysphagia Psychiatry- denies depression or SI or HI Skin-discoloration of skin of the bilateral lower extremity laboratory and microbiology Laboratory Tests 04/06/24 05:42 Test 04/06/24 05:42 Range/Units Serum Glucose 112 H 74-106 mg/dL Microbiology Date/Time Source Procedure Growth Status 04/03/24 17:08 Voided Urine Urine Culture - Final Complete Problem List/Assessment/Plan Problem List/Assessment/Plan # Acute cystitis # Swelling of the lower limb, likely due to lymphedema ruled out DVT # Nonobstructing renal stone # Chronic hypothyroidism #Obesity # multiple sclerosis-no acute exacerbation # hypokalemia-replenished Urinalysis revealed leukocyte esterase 3+, WBC 56, RBC 16, bacteria many. TSH 1.76. CT abdomen revealed-Punctate nonobstructive left lower pole renal calculus. No hydronephrosis. Sludge in the gallbladder. Ventral hernia containing bowel. Possible hemangioma in the L2 vertebral body. This could be further evaluated with MRI of the lumbar spine with contrast. Bilateral lower extremity venous Doppler negative for DVT ORDERED HOME HEALTH FOR PHYSICAL THERAPY Continue ceftriaxone 1 g IV daily Continue bumetanide 2 mg p.o. b.i.d. Continue Lovenox 40 mg subcutaneously daily Continue famotidine 20 mg p.o. daily Continue levothyroxine 50 mcg p.o. q.a.m. Goals of care/advance care planning; FULL CODE; discussed with the patient >15 minutes PUD prophylaxis: Famotidine DVT prophylaxis: Lovenox Plan discussed with Dr. Tavera, nursing staff, patient Total time spent on patient evaluation, chart review, assessment and plan, discussion discussion >30 minutes Plan discussed with: Patient Plan discussed with: Patient, Other (RN) My Orders My Orders Orders - DOREEN MORRISON Procedure Category Date Status Time * [employer] Consultant CONS 04/06/24 Transmitted Consult 15:54 Date of Service: Apr 06, 2024 Billing Provider: DISHA TAVERA MD Common Visit Codes: [id number] INP/OBS CARE(MOD) DOREEN MORRISON Apr 06, 2024 16:11 DISHA TAVERA MD Apr 07, 2024 09:04
[2024-04-07 01:00] VITALS: BP 125/54; PULSE 85; RESP 17; TEMP 97.2; O2SAT 97
[2024-04-07 05:00] VITALS: BP 136/59; PULSE 84; RESP 17; TEMP 98.1; O2SAT 97
[2024-04-07 06:50] LABS: Calcium 9.5 mg/dL (8.7-10.4); Chloride 104 mmol/L (98-107); Sodium 144 mmol/L (136-145)
[2024-04-07 06:51] LABS: Anion Gap 9 (5-15); Carbon Dioxide 31 mmol/L (20-31)
[2024-04-07 06:56] LABS: BUN/Creatinine Ratio 23.6 (10.0-20.0)
[2024-04-07 07:01] LABS: Blood Urea Nitrogen 25 mg/dL (9-23); Glucose 112 mg/dL (74-106); Potassium 3.4 mmol/L (3.5-5.1)
[2024-04-07 09:00] VITALS: BP 122/66; PULSE 76; RESP 17; TEMP 97.5; O2SAT 96
[2024-04-07] MEDS: POTASSIUM EFFERVESENT TAB 25 MEQ PO ONE (10:15)
[2024-04-07 13:00] VITALS: BP 132/67; PULSE 80; RESP 18; TEMP 97.6; O2SAT 97
[2024-04-07 15:35] VITALS: BP 136/59
--- NOTE | 2024-04-08 21:40 | DVHDSRES ---
Discharge Summary Date of Admission Resident Creating Document: DOREEN MORRISON RESIDENT Apr 03, 2024 at 21:27 Date of Discharge: Apr 07, 2024 Admitting Diagnosis Suspected dysuria with bilateral leg swelling Labs/Diagnostic Data: Laboratory Results Test 04/07/24 05:19 04/06/24 05:42 04/03/24 17:08 04/03/24 11:54 Sodium Level 144 mmol/L (136-145) Potassium Level 3.4 mmol/L (3.5-5.1) Chloride Level 104 mmol/L (98-107) Carbon Dioxide Level 31 mmol/L (20-31) Anion Gap 9 (5-15) Blood Urea Nitrogen 25 mg/dL (9-23) Creatinine 1.06 mg/dL (0.550-1.02) Glomerular Filtration Rate Calc 53 mL/min (>90) BUN/Creatinine Ratio 23.6 (10.0-20.0) Serum Glucose 112 mg/dL (74-106) Calcium Level 9.5 mg/dL (8.7-10.4) White Blood Count 9.8 10^3/uL (4.4-10.8) Red Blood Count 4.25 10^6/uL (4.0-5.20) Hemoglobin 12.8 g/dL (12.2-16.2) Hematocrit 38.3 % (36.0-46.0) Mean Corpuscular Volume 90.0 fL (80.0-100.0) Mean Corpuscular Hemoglobin 30.1 pg (28.0-32.0) Mean Corpuscular Hemoglobin Concent 33.4 g/dL (32.0-36.0) Red Cell Distribution Width 15.3 % (11.8-14.3) Platelet Count 291 10^3/uL (140-450) Mean Platelet Volume 8.6 fL (6.9-10.8) Neutrophils (%) (Auto) 64.0 % (37.0-80.0) Lymphocytes (%) (Auto) 24.3 % (10.0-50.0) Monocytes (%) (Auto) 7.6 % (0.0-12.0) Eosinophils (%) (Auto) 3.5 % (0.0-7.0) Basophils (%) (Auto) 0.6 % (0.0-2.0) Neutrophils # (Auto) 6.3 10 ^3/uL (1.6-8.6) Lymphocytes # (Auto) 2.4 10 ^3/uL (0.4-5.4) Monocytes # (Auto) 0.7 10 ^3/uL (0-1.3) Eosinophils # (Auto) 0.3 10 ^3/uL (0-0.8) Basophils # (Auto) 0.1 10 ^3/uL (0-0.2) Nucleated Red Blood Cells 0.2 % Urine Color Colorless (Yellow) Urine Clarity Turbid (Clear) Urine pH 7.0 (5.0-9.0) Urine Specific [place] 1.007 (1.001-1.035) Urine Protein Negative (Negative) Urine Ketones Negative (Negative) Urine Blood Negative /uL (Negative) Urine Nitrite Negative (Negative) Urine Bilirubin Negative (Negative) Urine Urobilinogen Normal mg/dL (Negative) Urine Leukocyte Esterase 3+ /uL (Negative) Urine RBC 16 /hpf (0 - 4) Urine WBC 50 /hpf (0 - 5) Urine Squamous Epithelial Cells Few /hpf (<5) Urine Bacteria Many /hpf (None Seen) Urine Mucus Few (None Seen) Urine Glucose Normal mg/dL (Normal) Hemoglobin A1c 5.4 % A1C (<5.7) Total Bilirubin 0.3 mg/dL (0.2-1.0) Aspartate Amino Transferase (AST) 23 U/L (13-40) Alanine Aminotransferase (ALT) 20 U/L (7-40) Alkaline Phosphatase 151 U/L (46-116) B-Type Natriuretic Peptide 64.97 pg/mL (0-100) Total Protein 5.9 g/dL (5.7-8.2) Albumin 3.5 g/dL (3.2-4.8) Thyroid Stimulating Hormone (TSH) 1.76 uIU/mL (0.55-4.78) Other Laboratory Tests 04/07/24 05:19 04/06/24 05:42 Brief Hx & Hospital Course: This is a 79-year-old female with past medical history of multiple sclerosis, hypothyroidism presented to the ED with a chief complaint of bilateral leg swelling and dysuria for 5 days prior to this admission. The patient states that leg swelling started 2 years ago progressive in nature and not able to walk, wheel chair bound , difficulty in urination and associated with painful burning sensation of foul-smelling urine for last 5 days. She also mentioned that she underwent total abdominal hysterectomy and removal of ovarian tumor in 2014 and after that she started progressive weakness and swelling in bilateral lower limbs. She denies fever, chills, shortness of breath, dizziness, diaphoresis, nausea, vomiting or any sick contact. Urinalysis revealed leukocyte esterase 3+, WBC 56, RBC 16, bacteria many. TSH 1.76. CT abdomen revealed-Punctate nonobstructive left lower pole renal calculus. No hydronephrosis. Sludge in the gallbladder. Ventral hernia containing bowel. Possible hemangioma in the L2 vertebral body. This could be further evaluated with MRI of the lumbar spine with contrast. Bilateral lower extremity venous Doppler negative for DVT. During hospital course patient was treated conservatively. Doppler study ruled out DVT, patient has bilateral lower extremity swelling likely due to lymphedema. Hypokalemia replenished, patient's dysuria improved with treatment of ceftriaxone 1 g IV daily. Uterine culture had no significant growth, more than 3 organisms, patient was discharged with home health for physical therapy. Patient was prescribed Macrobid 100 mg p.o. b.i.d. for 5 days. patient was advised to follow up with the primary care physician in 1 week. Patient was prescribed Macrobid 100 mg p.o. b.i.d. for 5 days for UTI. Patient was hemodynamically stable on discharge General examination-awake, alert, oriented, conversant HEENT- PEERLA, no acute nasal discharge Cardiovascular- S1-S2 audible, rate and rhythm regular, no murmur Respiratory- CTAB, no wheeze or rhonchi Gastrointestinal-nontender, bowel sound+. Nondistended Musculoskeletal-no acute joint swelling or tenderness or redness# Lower extremity- bilateral leg edema++ Neurological- cranial nerves intact, no acute dysarthria or dysphagia Psychiatry- denies depression or SI or HI Skin-discoloration of skin of the bilateral lower extremity Operations or Procedures Signed PATIENT: MERARY WAGNER ACCT: [id number] UNIT: [id number] : 1945 LOC: ER ROOM / BED: / AGE / SEX: 79 / F ADM STATUS: REG ER SERVICE 1054 ORDERING PHYSICIAN: CIARA TEIXEIRA MD PROCEDURE(s): BLDVT - BiLat Lower DVT REASON: edema ORDER NUMBER(s): [id number], ACCESSION NUMBER(s): [id number] Bilateral lower extremity venous duplex Clinical History: edema Comparison: None Technique: Duplex Doppler evaluation of the deep venous systems of both lower extremities from the common femoral veins to the popliteal veins including color Doppler and spectral/pulsed waveform analysis was performed. Findings: RIGHT SIDE: The common femoral vein demonstrates appropriate compressibility and waveform variability. There is compressibility/patency of the great saphenous vein at the proximal thigh. The femoral vein demonstrates appropriate compressibility and waveform variability. The deep femoral vein demonstrates appropriate compressibility and waveform variability. The popliteal vein demonstrates appropriate compressibility and waveform variability. There is normal compressibility at the tibioperoneal trunk. LEFT SIDE: The common femoral vein demonstrates appropriate compressibility and waveform variability. There is compressibility/patency of the great saphenous vein at the proximal thigh. The femoral vein demonstrates appropriate compressibility and waveform variability. The deep femoral vein demonstrates appropriate compressibility and waveform variability. The popliteal vein demonstrates appropriate compressibility and waveform variability. There is normal compressibility at the tibioperoneal trunk. Impression: 1. No right or left femoropopliteal venous thrombosis. HS:Y Signed PATIENT: MERARY WAGNER ACCT: [id number] UNIT: [id number] : 1945 LOC: ER ROOM / BED: / AGE / SEX: 79 / F ADM STATUS: REG ER SERVICE 1054 ORDERING PHYSICIAN: CIARA TEIXEIRA MD PROCEDURE(s): ABPL - CT AB PEL WO CON-NO ORAL OR IV REASON: urinary obstruction ORDER NUMBER(s): [id number], ACCESSION NUMBER(s): [id number] Exam: CT CT AB PEL WO CON-NO ORAL OR IV History: urinary obstruction Comparison Study: None Technique: Multidetector spiral CT of the abdomen and pelvis was performed from lung bases to pubic symphysis. Imaging was performed without IV contrast. Axial, coronal and sagittal multiplanar reformats were obtained from the axial data set by the technologist. Radiation dose : Abdomen/Pelvis: CTDIvol 23 mGy, DLP 1298 mGy*cm. Findings: Evaluation of solid organs is limited due to lack of intravenous contrast use. Lung Bases: Atelectasis and scarring in the lung bases. Liver: The liver is normal in size. No focal lesions. Gallbladder and biliary Tree: Sludge in the gallbladder. Spleen: Unremarkable Pancreas: The pancreas is grossly normal in appearance. Adrenal Glands: Unremarkable Kidneys: Punctate left lower pole renal calculus. No hydronephrosis. Bladder: Grossly unremarkable for degree of distention. Bowel: The stomach is grossly normal in appearance. Small bowel and colon are normal in caliber and distribution. The appendix is not visualized; however, no secondary findings of acute appendicitis identified. Ascites: Absent Lymphadenopathy: No mesenteric, retroperitoneal or periportal lymphadenopathy. Abdominal wall and Mesentery: Ventral hernia containing bowel. Vasculature: The visualized abdominal aorta is normal in size and caliber. Evaluation of abdominal and pelvic vessels is limited due to lack of intravenous contrast. Pelvic Organs: The uterus is surgically absent. Musculoskeletal: Dextroscoliosis with associated multilevel degenerative disease. Lucent lesion in the L2 vertebral body could represent a hemangioma. IMPRESSION: 1. Punctate nonobstructive left lower pole renal calculus. No hydronephrosis. Sludge in the gallbladder. Ventral hernia containing bowel. Possible hemangioma in the L2 vertebral body. This could be further evaluated with MRI of the lumbar spine with contrast. Radiation optimization: All CT scans at this facility use at least one of these dose optimization techniques: Automated exposure control mA and/or kV adjustment per patient size (includes targeted exams where dose is matched to clinical indication) or iterative reconstruction. HS:Y ATED BY: ANDERS ALCARAZ MD DICTATED DATE/TIME: 04/03/24 1153 SIGNED BY: ANDERS ALCARAZ MD SIGNED DATE/TIME: 04/03/24 1153 CC: Condition at Discharge: Stable Final Diagnosis/Problems List # Acute cystitis # Swelling of the lower limb, likely due to lymphedema ruled out DVT # Nonobstructing renal stone # Chronic hypothyroidism #Obesity # multiple sclerosis-no acute exacerbation # hypokalemia-replenished Discharge Disposition: Home with Health Services Discharge Instruct/Medications Diet: Regular Activity: Light activity Follow Up/Referral: please folow up with your PCP in one week Medications: Macrobid 100 mg p.o. b.i.d. for 5 days Discharge Statement: "Patient was advised to return to the ER or call 911 if any headaches, dizziness, shortness of breath, chest pain, abdominal pain, bleeding, fevers, or worsening of medical condition. Patient was counseled about treatment plan, medications, possible side effects, patientverbalized understanding. All questions were answered to the best of my ability. This discharge took greater then 30 minutes in planning, reviewing documentation, counseling the patient, and discussing with other team members." ASSESSMENT ASSESSMENT Assessment # Acute cystitis # Swelling of the lower limb, likely due to lymphedema ruled out DVT # Nonobstructing renal stone # Chronic hypothyroidism #Obesity # multiple sclerosis-no acute exacerbation # hypokalemia-replenished Date of Service: Apr 07, 2024 Billing Provider: AKILAH QUINTERO MD Common Visit Codes: 49974-KSH/OBS DISCH DAY >30min DOREEN MORRISON RESIDENT Apr 08, 2024 21:40 AKILAH QUINTERO MD Apr 09, 2024 16:54
[2024-04-08] MEDS ORDERED: NITR-87 PO (21:43)
== END 2024-04-07 17:04 | disposition home health service (06) | DRG 690 ==
LOC: ER 09:16 → EDBD 09:16 → ER 11:24 → OVERFLOW 21:27 → WEST WING 23:24
PROVIDERS: ADMIT Internal Medicine Geriatric Medicine; ATTEND Internal Medicine Geriatric Medicine
DX: N30.00 Acute cystitis without hematuria (principal); I89.0 Lymphedema, not elsewhere classified; G35 Multiple sclerosis; N20.0 Calculus of kidney; E03.9 Hypothyroidism, unspecified; E87.6 Hypokalemia; E66.9 Obesity, unspecified; Z68.37 Body mass index [BMI] 37.0-37.9, adult; Z90.710 Acquired absence of both cervix and uterus
CPT/HCPCS: 36415; 74176; 80048; 80053; 81001; 83036; 83880; 84443; 85025; 87086; 93970; 97110; 97116; 97163; 97530; G0378

== ENCOUNTER 2025-02-26 09:02 | Inpatient (IN) | payer OTHER, MEDICAID ==
[~2025-02-26] VITALS: Ht 160 cm; Wt 106.6 kg
[~2025-02-26 09:02] MED LIST: NITR-87 PO
--- NOTE | 2025-02-26 09:19 | ED.PDOC ---
History of Present Illness HPI Comments 79 y.o female with PMHx of ovarian cancer and MS, presents to the ED via EMS for a chief complaint of lower extremity swelling x 2-3 weeks. EMS reports patient slid out of her wheelchair today and was unable to assist herself back up given leg heaviness due to swelling. Patient reports swelling has only worsened, states sleeping in a recliner. She is able to assist herself onto her bed, however is unable to ambulate due to the swelling. She was recently seen by OB Dr. Haywood 2 days ago due to ongoing urine retention which gradually appeared s/p hysterectomy x 2015. She believes during hysterectomy, she believes they left an instrument in her and has pending procedure with OB to re evaluate site. She denies any chest pain, palpitations, fever, chills. Chief Complaint: Lower Extremity Time Seen by MD: 09:00 Primary Care Provider: DEMARCUS Hurt Notes: Nurses Notes, Medications, Allergies Allergies: Coded Allergies: NO KNOWN ALLERGIES (Unverified , 04/17/19) Home Meds Active Scripts Nitrofurantoin Monohydrate Mac (Macrobid) 100 Mg Cap, 100 MG PO BID for 5 Days, #10 CAP Prov:NATTYDOREEN Levin RESIDENT 04/08/24 Information Source: Patient Mode of Arrival: EMS Severity: Moderate Timing: Weeks Duration: Since onset Past Medical History PAST MEDICAL HISTORY: Cancer Past Medical History (Other): MS Surgical History: Hysterectomy Family History Family History: Reviewed,noncontributory to illness, No family hx of Cancer, No family hx of DM, No family hx of Heart jordyn, No family hx of HTN, No family hx ofKidney jordyn, No family hx of Liver jordyn, No family hx of Lung jordyn, No family hx of Stroke Social History Smoker: Non-Smoker Alcohol: Denies ETOH Use Drugs: Denies Drug Use Lives In: Home Constitutional: denies: chills, diaphoresis, fatigue, fever, malaise, sweats, weakness, others EENTM: denies: blurred vision, double vision, ear bleeding, ear discharge, ear drainage, ear pain, ear ringing, eye pain, eye redness, hearing loss, mouth pain, mouth swelling, nasal discharge, nose bleeding, nose congestion, nose pain, photophobia, tearing, throat pain, throat swelling, voice changes, others Respiratory: denies: cough, hemoptysis, orthopnea, SOB at rest, shortness of breath, SOB with excertion, stridor, wheezing, others Cardiovascular: denies: chest pain, dizzy spells, diaphoresis, Dyspnea on exertion, edema, irregular heart beat, left arm pain, lightheadedness, palpitations, PND, syncope, others Gastrointestinal: denies: abdomen distended, abdominal pain, blood streaked bowels, constipated, diarrhea, dysphagia, difficulty swallowing, hematemesis, melena, nausea, poor appetite, poor fluid intake, rectal bleeding, rectal pain, vomiting, others Genitourinary: denies: abnormal vagina bleeding, burning, dyspareunia, dysuria, flank pain, frequency, hematuria, incontinence, pain, , vagina discharge, urgency, others Neurological: denies: dizziness, fainting, headache, left sided numbness, left sided weakness, numbness, paresthesia, pre-existing deficit, right sided numbness, right sided weakness, seizure, speech problems, tingling, tremors, weakness, others Musculoskeletal: reports: others (lower extremity swelling ); denies: back pain, gout, joint pain, joint swelling, muscle pain, muscle stiffness, neck pain Integumetry: denies: bruises, change in color, change in hair/nails, dryness, laceration, lesions, lumps, rash, wounds, others Allergic/Immunocompromised: denies: Difficulty Healing, Frequent Infections, Hives, Itching, others Hematologic/Lymphatic: denies: anemia, blood clots, easy bleeding, easy bruisi ng, swollen glands, others Endocrine: denies: excessive hunger, excessive sweating, excessive thirst, exce ssive urination, flushing, intolerance to cold, intolerance to heat, unexplained weight gain, unexplained weight loss, others Psychiatric: denies: anxiety, bipolar disorder, depression, hopeless, panic disorder, schizophrenia, sleepless, suicidal, others All Other Systems: Reviewed and Negative Physical Exam General Appearance: Moderate Distress HEENT: Normal ENT Inspection, Pharynx Normal, TMs Normal Neck: Full Range of Motion, Non-Tender, Normal, Normal Inspection Respiratory: Chest Non-Tender, Lungs Clear, No Accessory Muscle Use, No Respiratory Distress, Normal Breath Sounds Cardiovascular: No Edema, No JVD, No Murmur, No Gallop, Normal Peripheral Pulses, Regular Rate/Rhythm Breast Exam: Deferred Gastrointestinal: No Organomegaly, Non Tender, No Pulsatile Mass, Normal Bowel Sounds, Soft Genitalia: Deferred Pelvic: Deferred Rectal: Deferred Extremities: No calf tenderness, Pedal edema, Swelling (Bilateral lower extremity) Musculoskeletal : Apperance: Normal Neurologic: Alert, No Motor Deficits, No Sensory Deficits Cerebellar Function: NOT DONE Reflexes: NOT DONE Skin: Normal Color Peripheral Pulses: 3+ Radial (R), 3+ Radial (L) Lymphatic: No Adenopathy Was a procedure done? Was a procedure done?: No Differential Dx Considerations may include: CHF, electrolyte imbalance, UTI X-Ray, Labs, Meds, VS Vital Signs Date Time Temp Pulse Resp B/P (MAP) Pulse Ox O2 Delivery O2 Flow Rate FiO2 02/26/25 10:12 127/83 02/26/25 09:49 97.7 93 12 141/68 (92) 98 97.7 02/26/25 09:49 98 Room Air* 0 21 02/26/25 09:03 105 02/26/25 09:02 97.6 103 14 166/64 97 97.6 Lab Test 02/26/25 09:15 Range/Units White Blood Count 6.9 4.4-10.8 10^3/uL Red Blood Count 3.82 L 4.0-5.20 10^6/uL Hemoglobin 11.5 L 12.2-16.2 g/dL Hematocrit 34.7 L 36.0-46.0 % Mean Corpuscular Volume 90.7 80.0-100.0 fL Mean Corpuscular Hemoglobin 30.0 28.0-32.0 pg Mean Corpuscular Hemoglobin Concent 33.1 32.0-36.0 g/dL Red Cell Distribution Width 15.5 H 11.8-14.3 % Platelet Count 268 140-450 10^3/uL Mean Platelet Volume 9.1 6.9-10.8 fL Neutrophils (%) (Auto) 63.5 37.0-80.0 % Lymphocytes (%) (Auto) 24.4 10.0-50.0 % Monocytes (%) (Auto) 5.6 0.0-12.0 % Eosinophils (%) (Auto) 5.8 0.0-7.0 % Basophils (%) (Auto) 0.7 0.0-2.0 % Neutrophils # (Auto) 4.4 1.6-8.6 10 ^3/uL Lymphocytes # (Auto) 1.7 0.4-5.4 10 ^3/uL Monocytes # (Auto) 0.4 0-1.3 10 ^3/uL Eosinophils # (Auto) 0.4 0-0.8 10 ^3/uL Basophils # (Auto) 0 0-0.2 10 ^3/uL Nucleated Red Blood Cells 0.0 % Sodium Level 145 136-145 mmol/L Potassium Level 3.9 3.5-5.1 mmol/L Chloride Level 105 98-107 mmol/L Carbon Dioxide Level 32 H 20-31 mmol/L Anion Gap 8 5-15 Blood Urea Nitrogen 27 H 9-23 mg/dL Creatinine 1.11 H 0.550-1.02 mg/dL Glomerular Filtration Rate Calc 50 >90 mL/min BUN/Creatinine Ratio 24.3 H 10.0-20.0 Serum Glucose 100 74-106 mg/dL Calcium Level 9.3 8.7-10.4 mg/dL Troponin I High Sensitivity 4 </=34 ng/L B-Type Natriuretic Peptide 22.95 0-100 pg/mL Current Medications Medications (Trade) Dose Ordered Sig/Teddy Route Start Time Stop Time Status Last Admin Furosemide (Lasix Injection) 40 mg ONCE ONCE IV 02/26/25 09:15 02/26/25 09:16 DC 02/26/25 10:12 Patient alert. Vitals stable. Complaining of having swelling of the bilateral lower extremity. Answering questions. History of ovarian cancer. Has been having increasing swelling in the past few weeks. No shortness a breath. Possible CHF. Was given Lasix. Chest x-ray reviewed does show congestion. Explained to the patient. Continue monitoring. Time of 1ST Reevaluation: 09:18 Reevaluation 1ST: Unchanged Patient Education/Counseling: Diagnosis, Treatment, Prognosis Family Education/Counseling: No Family Present SEPSIS Sepsis Screen Physician Orders Electrocardigram (02/26/25 09:07) Chest Portable (02/26/25 09:08) Urinalysis (02/26/25 09:08) Bilat Lower Dvt (02/26/25 09:10) Vital Signs Date Time Temp Pulse Resp B/P (MAP) Pulse Ox O2 Delivery O2 Flow Rate FiO2 02/26/25 10:12 127/83 02/26/25 09:49 97.7 93 12 141/68 (92) 98 97.7 02/26/25 09:49 98 Room Air* 0 21 02/26/25 09:03 105 02/26/25 09:02 97.6 103 14 166/64 97 97.6 Laboratory Tests Test 02/26/25 09:15 White Blood Count 6.9 10^3/uL (4.4-10.8) Medications Medications Dose Ordered Sig/Teddy Route Start Time Stop Time Status Last Admin Dose Admin Furosemide 40 mg ONCE ONCE IV 02/26/25 09:15 02/26/25 09:16 DC 02/26/25 10:12 Departure 1 Departure Time of Disposition: 10:56 Impression: Primary Impression: CHF (congestive heart failure) Qualified Codes: I50.43 - Acute on chronic combined systolic (congestive) and diastolic (congestive) heart failure Additional Impression: Hypertensive urgency Disposition: ADMITTED INPATIENT Admit to: Med Surg Condition: Guarded Critical Care Note Critical Care Time?: Yes (90 min-critical care time only) Stability Stability form required: No I personally scribed for FANY BANDA MD ([email or web address]) on 02/26/25 at 09:19. Electronically submitted by Tena Oakley ([facility]). FANY BANDA MD Feb 26, 2025 09:19
[2025-02-26 09:35] LABS: Hematocrit 34.7 % (36.0-46.0); Hemoglobin 11.5 g/dL (12.2-16.2); Mean Corpuscular Hemoglobin 30.0 pg (28.0-32.0); Mean Corpuscular Volume 90.7 fL (80.0-100.0); Nucleated Red Blood Cells % 0.0 %
[2025-02-26 09:36] LABS: Chloride 105 mmol/L (98-107); Potassium 3.9 mmol/L (3.5-5.1)
[2025-02-26 09:37] LABS: Anion Gap 8 (5-15)
[2025-02-26 09:38] LABS: Calcium 9.3 mg/dL (8.7-10.4)
--- NOTE | 2025-02-26 09:41 | DVH ---
CHEST RADIOGRAPH Indication: sob Technique: Single frontal view of the chest was obtained COMPARISON: CHEST PORTABLE on DOS: 04/16/19 FINDINGS: Lines and Tubes: None Lungs: Increased interstitial prominence. This may represent pulmonary vascular congestion and/or viral pneumonia. Pleura: No effusion.No pneumothorax. Cardiomediastinal contours: Unremarkable Bones: Unremarkable IMPRESSION: Increased interstitial prominence. This may represent pulmonary vascular congestion and/or viral pneumonia.
[2025-02-26 09:43] LABS: BUN/Creatinine Ratio 24.3 (10.0-20.0); Blood Urea Nitrogen 27 mg/dL (9-23); Carbon Dioxide 32 mmol/L (20-31); Glucose 100 mg/dL (74-106); Sodium 145 mmol/L (136-145)
--- NOTE | 2025-02-26 09:46 | DVH ---
Bilateral lower extremity venous duplex Clinical History: dvt Comparison: US BILAT LOWER DVT on DOS: 04/03/24 Technique: Duplex doppler evaluation of the deep venous systems of both lower extremities from the common femoral veins to the popliteal veins including color doppler and spectral/pulsed waveform analysis was performed. Findings: RIGHT SIDE: The common femoral vein demonstrates appropriate compressibility and waveform variability. There is compressibility/patency of the great saphenous vein at the proximal thigh. The femoral vein demonstrates appropriate compressibility and waveform variability. The deep femoral vein demonstrates appropriate compressibility and waveform variability. The popliteal vein demonstrates appropriate compressibility and waveform variability. There is normal compressibility at the tibioperoneal trunk. LEFT SIDE: The common femoral vein demonstrates appropriate compressibility and waveform variability. There is compressibility/patency of the great saphenous vein at the proximal thigh. The femoral vein demonstrates appropriate compressibility and waveform variability. The deep femoral vein demonstrates appropriate compressibility and waveform variability. The popliteal vein demonstrates appropriate compressibility and waveform variability. There is normal compressibility at the tibioperoneal trunk. Impression: 1. No right or left femoropopliteal venous thrombosis.
[2025-02-26 09:49] VITALS: O2SAT 98
[2025-02-26] MEDS: FUROSEMIDE 40 MG/4 ML VIAL IV ONE (10:12)
[2025-02-26 11:37] LABS: Urine Protein, UAD Negative (Negative)
[2025-02-26 13:30] LABS: Albumin 3.6 g/dL (3.2-4.8)
[2025-02-26] MEDS ORDERED: ONDANSETRON HCL 4 MG/2 ML VIAL IV PRN (13:30)
[2025-02-26] MEDS ORDERED: NITROGLYCERIN 0.4 MG SL TAB SL PRN (13:30)
[2025-02-26] MEDS ORDERED: MORPHINE SULFATE INJ 2 MG/ml SYRG IV PRN ×2 (13:30)
[2025-02-26] MEDS ORDERED: HYDROcodone-ACET 5/325MG TAB PO PRN (13:30)
[2025-02-26] MEDS ORDERED: ACETAMINOPHEN 325 MG TAB PO PRN (13:30)
[2025-02-26] MEDS ORDERED: DOCUSATE SOD 100 MG CAP PO PRN (13:30)
--- NOTE | 2025-02-26 13:49 | DVHHP2 ---
History of Present Illness Reason for Visit: Bilateral leg swelling worsening for last few days. History of Present Illness 79-year-old female with a known history of multiple sclerosis, chronic lymp hedema of bilateral lower extremity, history of ovarian cancer status post total hysterectomy with a bilateral salpingo-oophorectomy , right breast cancer status post mastectomy presented to the hospital with a bilateral leg swelling worsening for last few days with a underlying chronic lymphedema. Patient does take Bumex 1 mg twice a day at home. Patient was eventually recommended to be admitted for IV diuretics. Patient is currently denies any chest pain shortness of breaths. 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 Allergies: Coded Allergies: NO KNOWN ALLERGIES (Unverified , 04/17/19) Medications Current Medications Medications Dose Ordered Sig/Teddy Route Start Time Stop Time Status Last Admin Dose Admin Acetaminophen/ Hydrocodone Bitart 1 tab Q4HP PRN PO 02/26/25 13:30 UNV Ondansetron HCl 4 mg Q4HP PRN IV 02/26/25 13:30 UNV Docusate Sodium 100 mg BIDPRN PRN PO 02/26/25 13:30 UNV Enoxaparin Sodium 40 mg DAILY SC 02/27/25 10:00 UNV Acetaminophen 650 mg Q6HP PRN PO 02/26/25 13:30 UNV Morphine Sulfate 2 mg Q4HPRN PRN IV 02/26/25 13:30 UNV Nitroglycerin 0.4 mg Q5MINP PRN SL 02/26/25 13:30 UNV Morphine Sulfate 2 mg Q30M PRN IV 02/26/25 13:30 UNV Bumetanide 1 mg BIDD IV 02/26/25 18:00 UNV Exam Vital Signs Vital Signs Date Time Temp Pulse Resp B/P (MAP) Pulse Ox O2 Delivery O2 Flow Rate FiO2 02/26/25 11:16 98 12 130/46 (74) 97 02/26/25 09:49 97.7 97.7 02/26/25 09:49 Room Air* 0 21 Exam HEENT pupils are reactive Neck is supple CV is S1-S2 regular rate and rhythm Respiratory diminished breath sounds bases GI positive bowel sounds Extremity nonpitting edema Labs/Xrays Labs Test 02/26/25 11:00 02/26/25 09:15 Range/Units Urine Color Colorless Yellow Urine Clarity Clear Clear Urine pH 7.5 5.0-9.0 Urine Specific [place] 1.005 1.001-1.035 Urine Protein Negative Negative Urine Ketones Negative Negative Urine Blood Negative Negative /uL Urine Nitrite Negative Negative Urine Bilirubin Negative Negative Urine Urobilinogen Normal Negative mg/dL Urine Leukocyte Esterase 2+ Negative /uL Urine RBC 1 0 - 4 /hpf Urine Microscopic WBC 7 H 0-5 /HPF Urine Squamous Epithelial Cells Few <5 /hpf Urine Bacteria Few H None Seen /hpf Urine Glucose Normal Normal mg/dL White Blood Count 6.9 4.4-10.8 10^3/uL Red Blood Count 3.82 L 4.0-5.20 10^6/uL Hemoglobin 11.5 L 12.2-16.2 g/dL Hematocrit 34.7 L 36.0-46.0 % Mean Corpuscular Volume 90.7 80.0-100.0 fL Mean Corpuscular Hemoglobin 30.0 28.0-32.0 pg Mean Corpuscular Hemoglobin Concent 33.1 32.0-36.0 g/dL Red Cell Distribution Width 15.5 H 11.8-14.3 % Platelet Count 268 140-450 10^3/uL Mean Platelet Volume 9.1 6.9-10.8 fL Neutrophils (%) (Auto) 63.5 37.0-80.0 % Lymphocytes (%) (Auto) 24.4 10.0-50.0 % Monocytes (%) (Auto) 5.6 0.0-12.0 % Eosinophils (%) (Auto) 5.8 0.0-7.0 % Basophils (%) (Auto) 0.7 0.0-2.0 % Neutrophils # (Auto) 4.4 1.6-8.6 10 ^3/uL Lymphocytes # (Auto) 1.7 0.4-5.4 10 ^3/uL Monocytes # (Auto) 0.4 0-1.3 10 ^3/uL Eosinophils # (Auto) 0.4 0-0.8 10 ^3/uL Basophils # (Auto) 0 0-0.2 10 ^3/uL Nucleated Red Blood Cells 0.0 % Sodium Level 145 136-145 mmol/L Potassium Level 3.9 3.5-5.1 mmol/L Chloride Level 105 98-107 mmol/L Carbon Dioxide Level 32 H 20-31 mmol/L Anion Gap 8 5-15 Blood Urea Nitrogen 27 H 9-23 mg/dL Creatinine 1.11 H 0.550-1.02 mg/dL Glomerular Filtration Rate Calc 50 >90 mL/min BUN/Creatinine Ratio 24.3 H 10.0-20.0 Serum Glucose 100 74-106 mg/dL Calcium Level 9.3 8.7-10.4 mg/dL Troponin I High Sensitivity 4 </=34 ng/L B-Type Natriuretic Peptide 22.95 0-100 pg/mL Albumin 3.6 3.2-4.8 g/dL Prealbumin 21.6 10.0-40.0 md/dL SEPSIS Sepsis Screen Date sepsis recognized/suspect: Feb 26, 2025 Time Sepsis recognized/suspect: 948 Recent Procedure: No On Antibiotic Therapy: No Respiratory Rate >20: No Heart Rate >90: Yes Temp<36 C (96.8 F) or >38.3 C: No SBP <90 or MAP <65 mmHG: No New Acute Mental Status Change: No Is the patient on CPAP, BIPAP,: No Physician Orders Electrocardigram (02/26/25 09:07) Chest Portable (02/26/25 09:08) Bilat Lower Dvt (02/26/25 09:10) Insert Leyva Catheter QSHIFT (02/26/25 10:58) Admit (02/26/25 13:28) Code Status (02/26/25 13:28) 2 Gm Sodium Diet (02/26/25 Lunch) Hydrocodone-Acet 5/325mg Tab ([place] 5/32 (02/26/25 13:30) Ondansetron Hcl (Zofran) (02/26/25 13:30) Docusate Sodium Capsule (Colace Capsule) (02/26/25 13:30) Enoxaparin Sodium (Lovenox) (02/27/25 10:00) Fall Risk Precautions In Place QSHIFT (02/26/25 13:28) Complete Blood Count (02/27/25 04:00) Comprehensive Metabolic Panel (02/27/25 04:00) Pt Request For Service (02/26/25 13:28) Echo 2d Mode Cardiac Dop (02/26/25 13:28) Condition: Fair (02/26/25 13:28) Acetaminophen Tablet (Tylenol Tablet) (02/26/25 13:30) Morphine Sulfate Injection (02/26/25 13:30) Nitroglycerin Sublingual (Ntrostat Subli (02/26/25 13:30) Morphine Sulfate Injection (02/26/25 13:30) Stat Ekg For Chest Pain (02/26/25 13:28) Notify Md Of Changes From Base (02/26/25 13:28) Airline Flight Attendant For 24 Hours (02/26/25 13:28) Emergency Dysrhythmia Protocol (02/26/25:) Rhythm Strips Once Every Shift (02/26/25 13:28) Oxygen By Nasal Cannula (02/26/25:28) Bumetanide Injection (Bumex Injection) (02/26/25 18:00) Vital Signs Date Time Temp Pulse Resp B/P (MAP) Pulse Ox O2 Delivery O2 Flow Rate FiO2 02/26/25 11:16 98 12 130/46 (74) 97 02/26/25 10:12 127/83 02/26/25 09:49 97.7 93 12 141/68 (92) 98 97.7 02/26/25 09:49 98 Room Air* 0 21 02/26/25 09:03 105 02/26/25 09:02 97.6 103 14 166/64 97 97.6 Laboratory Tests Test 02/26/25 09:15 White Blood Count 6.9 10^3/uL (4.4-10.8) Medications Medications Dose Ordered Sig/Teddy Route Start Time Stop Time Status Last Admin Dose Admin Furosemide 40 mg ONCE ONCE IV 02/26/25 09:15 02/26/25 09:16 DC 02/26/25 10:12 40 MG Assessment/Plan Assessment/Plan 79-year-old female with a known history of multiple sclerosis, chronic lymphedema of the bilateral legs, ovarian cancer status post total hysterectomy with a bilateral salpingo-oophorectomy, right breast cancer status post mastectomy presented to the hospital with a worsening leg swelling with a underlying chronic lymphedema found to have 1. Acute on chronic bilateral leg swelling with a underlying chronic lymphedema 2. Pulmonary venous congestion low suspicious for congestive heart failure 3. Chronic lymphedema of the bilateral legs 4. Ovarian cancer status post total hysterectomy with a bilateral salpingo- oophorectomy 5. Right breast cancer status post mastectomy 6. Multiple sclerosis -admit to telemetry, IV diuretics, get 2D echo. -physical therapy evaluation and treatment. Plan discussed with: Patient My Orders Orders - LYNETTE SIGALA MD Procedure Category Date Status Time Admit ADMIT 02/26/25 Transmitted 13:28 Code Status CODE 02/26/25 Transmitted 13:28 2 Gm Sodium Diet DIET 02/26/25 Transmitted Lunch Hydrocodone-Acet PHA 02/26/25 Logged 5/325mg Tab ([place] 13:30 Ondansetron Hcl PHA 02/26/25 Logged (Zofran) 13:30 Docusate Sodium PHA 02/26/25 Logged Capsule (Colace 13:30 Enoxaparin Sodium PHA 02/27/25 Logged (Lovenox) 10:00 Fall Risk Precautions [facility] 02/26/[address] 13:28 Complete Blood Count LAB 02/27/25 Verified 04:00 Comprehensive LAB 02/27/25 Verified Metabolic Panel 04:00 Pt Request For Service PT 02/26/25 Logged 13:28 Echo 2d Mode Cardiac US 02/26/25 Logged DOP 13:28 Condition: Fair [facility] 02/26/25 In Process 13:28 Acetaminophen Tablet PHA 02/26/25 Logged (Tylenol Tablet) 13:30 Morphine Sulfate PHA 02/26/25 Logged Injection 13:30 Nitroglycerin PHA 02/26/25 Logged Sublingual (Ntrostat 13:30 Morphine Sulfate [facility] 02/26/25 Logged Injection 13:30 Stat Ekg For Chest [facility] 02/26/25 In Process Pain 13:28 Notify Md Of Changes [facility] 02/26/25 In Process From Base 13:28 Airline Flight Attendant For [facility] 02/26/25 In Process 24 Hours 13:28 Emergency Dysrhythmia [facility] 02/26/25 In Process Protocol 13:28 Rhythm Strips Once [facility] 02/26/25 In Process Every Shift 13:28 Oxygen By Nasal RT 02/26/25 Transmitted Cannula 13:28 Bumetanide Injection PHA 02/26/25 Logged (Bumex Injection) 18:00 Problem List: (1) Lower extremity edema Date of Service: Feb 26, 2025 Billing Provider: LYNETTE SIGALA MD Common Visit Codes: NOT BILLABLE LYNETTE SIGALA MD Feb 26, 2025 13:49
--- NOTE | 2025-02-26 16:14 | DVHSR ---
APPROVED REPORT EXAM: Two-dimensional and M-mode echocardiogram with Doppler and color Doppler. Blood Pressure: 130/46 mmHg INDICATION CHF RISK FACTORS Height: 5'3, Weight: 300 DIMENSIONS LVDd 4.2 (3.8-5.7cm) LA (2D) 3.8 (1.9-4.0cm) Aortic Root 2.9 (2.0-3.7cm) LVDs 2.9 (2.5-4.0cm) LA (MM) (1.9-4.0cm) Aortic Cusp Exc 1.9 (1.5-2.0cm) EF (%) 57.0 (55-70%) Rt. Atrium 3.1 (1.9-4.0cm) Asc. Aorta 3.2 cm IVSd 0.8 (0.7-1.1cm) RV (D) (1.8-2.4cm) PWd 1.1 (0.7-1.1cm) Mitral Valve Mitral Mitral Stenosis E wave 0.71m/s MV Mean GR. mmHg A wave 0.89m/s MV Peak GR. mmHg E/A ratio 0.8 2D MVA cm2 DECEL Time 324ms PRESS 1/2 Time ms Aortic Valve Aortic Valve Aortic Stenosis V1 0.91m/s AO Mean GR. 3mmHg V2 1.23m/s AO Peak GR. 6mmHg LVOT Diameter 2.0 (1.8-2.4cm) Doppler JORGE ALBERTO 2.32cm2 Tricuspid Valve TR Velocity 2.37m/s RVSP 23mmHg Other Information Technically limited study due to body habitus and patient position. Conclusion lvef 55% moderate septal hypertrophy RV enlarged left atrium enlarged no severe valve abnormality noted
[2025-02-26 16:53] VITALS: BP 130/59; PULSE 84; RESP 16; TEMP 98; O2SAT 96
[2025-02-26] MEDS: BUMETANIDE 1mg/4ml VIAL (0.25mg/ml) IV SCH (17:25)
--- NOTE | 2025-02-26 19:06 | ECG ---
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
[2025-02-26 20:00] VITALS: PULSE 85
[2025-02-26 21:00] VITALS: BP 119/50; PULSE 80; RESP 17; TEMP 97.8; O2SAT 97
[2025-02-27] VITALS (8 sets, daily range): BP systolic 113–138; BP diastolic 50–80; PULSE 67–88; RESP 16–20; TEMP 96.9–97.8; O2SAT 96–98
[2025-02-27 06:36] LABS: Hematocrit 33.5 % (36.0-46.0); Hemoglobin 11.3 g/dL (12.2-16.2); Mean Corpuscular Hemoglobin 30.7 pg (28.0-32.0); Mean Corpuscular Volume 91.2 fL (80.0-100.0); Nucleated Red Blood Cells % 0.1 %
[2025-02-27 06:50] LABS: Alanine Aminotransferase 19 U/L (7-40); Anion Gap 7 (5-15); BUN/Creatinine Ratio 24.4 (10.0-20.0); Blood Urea Nitrogen 21 mg/dL (9-23); Calcium 8.8 mg/dL (8.7-10.4); Glucose 92 mg/dL (74-106); Potassium 3.7 mmol/L (3.5-5.1)
[2025-02-27 06:51] LABS: Albumin 3.2 g/dL (3.2-4.8)
[2025-02-27 06:52] LABS: Bilirubin, Total 0.4 mg/dL (0.2-1.0)
[2025-02-27 06:53] LABS: Alkaline Phosphatase 165 U/L (46-116); Carbon Dioxide 32 mmol/L (20-31); Chloride 108 mmol/L (98-107); Sodium 147 mmol/L (136-145); Total Protein 5.6 g/dL (5.7-8.2)
[2025-02-27] MEDS: ENOXAPARIN SOD 40 MG/0.4 ML SYRINGE SC SCH (10:38)
--- NOTE | 2025-02-27 14:15 | DVHINCON2 ---
Date of service: Feb 27, 2025 History of Present Illness 79-year-old female with a known history of multiple sclerosis, chronic lymphedema of bilateral lower extremity, history of ovarian cancer status post total hysterectomy with a bilateral salpingo-oophorectomy , right breast cancer status post mastectomy presented to the hospital with a bilateral leg swelling worsening for last few days with a underlying chronic lymphedema. Patient does take Bumex 1 mg twice a day at home. Patient was eventually recommended to be admitted for IV diuretics. Patient is currently denies any chest pain shortness of breaths. 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.) Heme/Onc: Cancer Endocrine: Hypothyroidism Past Surgical History: Hysterectomy, Other (Total hysterectomy with a bilateral salpingo-oophorectomy, right mastectomy.) Family History: None Past Medical History reviewed Family History: Cardiomegaly G8 FATHER Diabetes mellitus G8 BROTHER G8 BROTHER FH: cancer G8 MOTHER Allergies: Coded Allergies: NO KNOWN ALLERGIES (Unverified , 04/17/19) Home Meds Active Scripts Nitrofurantoin Monohydrate Mac (Macrobid) 100 Mg Cap, 100 MG PO BID for 5 Days, #10 CAP Prov:DOREEN MORRISON RESIDENT 04/08/24 Current Medications Current Medications Medications (Trade) Dose Ordered Sig/Teddy Route PRN Reason Start Time Stop Time Status Last Admin Enoxaparin Sodium (Lovenox) 40 mg DAILY SC 02/27/25 10:00 02/27/25 10:38 Bumetanide (Bumex Injection) 1 mg BIDD IV 02/26/25 18:00 02/27/25 12:52 DC 02/27/25 06:56 Ceftriaxone Sodium 50 ml @ 100 mls/hr DAILY@09 IV 02/27/25 09:00 02/27/25 10:38 Furosemide (Lasix Injection) 40 mg BIDD IV 02/27/25 18:00 Review of Systems 10 pt ros otherwise negative Vital Signs Vital Signs Date Time Temp Pulse Resp B/P (MAP) Pulse Ox O2 Delivery O2 Flow Rate FiO2 02/27/25 12:57 97.2 75 16 126/80 (95) 96 97.2 02/27/25 08:00 Room Air* 0 21 Physical Exam nad s1 s2 rrr ctab soft nt/nd +3 edema to BL legs Labs/Diagnostic Data Labs Test 02/27/25 05:13 02/26/25 11:00 02/26/25 09:15 Range/Units White Blood Count 6.2 4.4-10.8 10^3/uL Red Blood Count 3.68 L 4.0-5.20 10^6/uL Hemoglobin 11.3 L 12.2-16.2 g/dL Hematocrit 33.5 L 36.0-46.0 % Mean Corpuscular Volume 91.2 80.0-100.0 fL Mean Corpuscular Hemoglobin 30.7 28.0-32.0 pg Mean Corpuscular Hemoglobin Concent 33.7 32.0-36.0 g/dL Red Cell Distribution Width 15.4 H 11.8-14.3 % Platelet Count 251 140-450 10^3/uL Mean Platelet Volume 9.3 6.9-10.8 fL Neutrophils (%) (Auto) 56.8 37.0-80.0 % Lymphocytes (%) (Auto) 30.5 10.0-50.0 % Monocytes (%) (Auto) 6.8 0.0-12.0 % Eosinophils (%) (Auto) 5.2 0.0-7.0 % Basophils (%) (Auto) 0.7 0.0-2.0 % Neutrophils # (Auto) 3.5 1.6-8.6 10 ^3/uL Lymphocytes # (Auto) 1.9 0.4-5.4 10 ^3/uL Monocytes # (Auto) 0.4 0-1.3 10 ^3/uL Eosinophils # (Auto) 0.3 0-0.8 10 ^3/uL Basophils # (Auto) 0 0-0.2 10 ^3/uL Nucleated Red Blood Cells 0.1 % Sodium Level 147 H 136-145 mmol/L Potassium Level 3.7 3.5-5.1 mmol/L Chloride Level 108 H 98-107 mmol/L Carbon Dioxide Level 32 H 20-31 mmol/L Anion Gap 7 5-15 Blood Urea Nitrogen 21 9-23 mg/dL Creatinine 0.86 0.550-1.02 mg/dL Glomerular Filtration Rate Calc 68 >90 mL/min BUN/Creatinine Ratio 24.4 H 10.0-20.0 Serum Glucose 92 74-106 mg/dL Calcium Level 8.8 8.7-10.4 mg/dL Total Bilirubin 0.4 0.2-1.0 mg/dL Aspartate Amino Transferase (AST) 27 13-40 U/L Alanine Aminotransferase (ALT) 19 7-40 U/L Alkaline Phosphatase 165 H 46-116 U/L Total Protein 5.6 L 5.7-8.2 g/dL Albumin 3.2 3.2-4.8 g/dL Urine Color Colorless Yellow Urine Clarity Clear Clear Urine pH 7.5 5.0-9.0 Urine Specific [place] 1.005 1.001-1.035 Urine Protein Negative Negative Urine Ketones Negative Negative Urine Blood Negative Negative /uL Urine Nitrite Negative Negative Urine Bilirubin Negative Negative Urine Urobilinogen Normal Negative mg/dL Urine Leukocyte Esterase 2+ Negative /uL Urine RBC 1 0 - 4 /hpf Urine Microscopic WBC 7 H 0-5 /HPF Urine Squamous Epithelial Cells Few <5 /hpf Urine Bacteria Few H None Seen /hpf Urine Glucose Normal Normal mg/dL Troponin I High Sensitivity 4 </=34 ng/L B-Type Natriuretic Peptide 22.95 0-100 pg/mL Prealbumin 21.6 10.0-40.0 md/dL Assessment chronic lymphedema htn obesity Plan/Recommendation non cardiac cause of lymphedema after major SLIP MAKER surgery consider home lymph compression device prn diuretics--bnp is normal, unlikely to be hhelpful vte was ruled out Plan discussed with: Patient RAMAN KELLOGG MD Feb 27, 2025 14:15
--- NOTE | 2025-02-27 14:35 | DVHPN2 ---
Subjective Patient is requesting Bumex to change to Lasix. Patient does have known history of chronic lymphedema does not seem to be any cardiac cause of edema. 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 Medications Current Medications Medications Dose Ordered Sig/Teddy Route Start Time Stop Time Status Last Admin Dose Admin Acetaminophen/ Hydrocodone Bitart 1 tab Q4HP PRN PO 02/26/25 13:30 Ondansetron HCl 4 mg Q4HP PRN IV 02/26/25 13:30 Docusate Sodium 100 mg BIDPRN PRN PO 02/26/25 13:30 Enoxaparin Sodium 40 mg DAILY SC 02/27/25 10:00 02/27/25 10:38 40 MG Acetaminophen 650 mg Q6HP PRN PO 02/26/25 13:30 Morphine Sulfate 2 mg Q4HPRN PRN IV 02/26/25 13:30 Nitroglycerin 0.4 mg Q5MINP PRN SL 02/26/25 13:30 Morphine Sulfate 2 mg Q30M PRN IV 02/26/25 13:30 Ceftriaxone Sodium 50 ml @ 100 mls/hr DAILY@09 IV 02/27/25 09:00 02/27/25 10:38 100 MLS/HR Furosemide 40 mg BIDD IV 02/27/25 18:00 Laboratory Results Laboratory Tests 02/27/25 05:13 Chemistry Test 02/27/25 05:13 Albumin 3.2 g/dL (3.2-4.8) Calcium Level 8.8 mg/dL (8.7-10.4) Total Protein 5.6 g/dL (5.7-8.2) L LFT Test 02/27/25 05:13 Alanine Aminotransferase (ALT) 19 U/L (7-40) Alkaline Phosphatase 165 U/L (46-116) H Aspartate Amino Transferase (AST) 27 U/L (13-40) Total Bilirubin 0.4 mg/dL (0.2-1.0) Urinalysis Test 02/26/25 11:00 Urine Color Colorless (Yellow) Urine Clarity Clear (Clear) Urine pH 7.5 (5.0-9.0) Urine Specific [place] 1.005 (1.001-1.035) Urine Protein Negative (Negative) Urine Ketones Negative (Negative) Urine Blood Negative /uL (Negative) Urine Nitrite Negative (Negative) Urine Bilirubin Negative (Negative) Urine Urobilinogen Normal mg/dL (Negative) Urine Leukocyte Esterase 2+ /uL (Negative) Urine RBC 1 /hpf (0 - 4) Urine Microscopic WBC 7 /HPF (0-5) H Urine Squamous Epithelial Cells Few /hpf (<5) Urine Bacteria Few /hpf (None Seen) H Urine Glucose Normal mg/dL (Normal) Assessment/Plan Assessment/Plan 79-year-old female with a known history of multiple sclerosis, chronic lymphedema of the bilateral legs, ovarian cancer status post total hysterectomy with a bilateral salpingo-oophorectomy, right breast cancer status post mastectomy presented to the hospital with a worsening leg swelling with a underlying chronic lymphedema found to have 1. Acute on chronic bilateral leg swelling with a underlying chronic lymphedema 2. Pulmonary venous congestion low suspicious for congestive heart failure 3. Chronic lymphedema of the bilateral legs 4. Ovarian cancer status post total hysterectomy with a bilateral salpingo- oophorectomy 5. Right breast cancer status post mastectomy 6. Multiple sclerosis -discontinue IV Bumex, start IV Lasix, follow up 2D echo cardiology consultation -physical therapy evaluation and treatment. -compression device -discharge plan. Plan discussed with: Patient My Orders Orders - LYNETTE SIGALA MD Procedure Category Date Status Time Ceftriaxone 1gm/50ml PHA 02/27/25 In Process (Rocephin) 09:00 * Cardiology Consult CONS 02/27/25 Transmitted 12:38 Furosemide Injection PHA 02/27/25 In Process (Lasix Injection) 18:00 Date of Service: Feb 27, 2025 Billing Provider: LYNETTE SIGALA MD Common Visit Codes: NOT BILLABLE LYNETTE SIGALA MD Feb 27, 2025 14:35
[2025-02-27] MEDS: FUROSEMIDE 40 MG/4 ML VIAL IV SCH (18:10)
[2025-02-28] VITALS (9 sets, daily range): BP systolic 116–143; BP diastolic 68–80; PULSE 79–110; RESP 16–19; TEMP 97.2–98.8; O2SAT 96–99
--- NOTE | 2025-02-28 15:44 | DVHDS2 ---
Discharge Summary Date of Admission Feb 26, 2025 at 13:28 Date of Discharge: Feb 28, 2025 Labs/Diagnostic Data: Laboratory Results Test 02/27/25 05:13 02/26/25 11:00 02/26/25 09:15 White Blood Count 6.2 10^3/uL (4.4-10.8) Red Blood Count 3.68 10^6/uL (4.0-5.20) Hemoglobin 11.3 g/dL (12.2-16.2) Hematocrit 33.5 % (36.0-46.0) Mean Corpuscular Volume 91.2 fL (80.0-100.0) Mean Corpuscular Hemoglobin 30.7 pg (28.0-32.0) Mean Corpuscular Hemoglobin Concent 33.7 g/dL (32.0-36.0) Red Cell Distribution Width 15.4 % (11.8-14.3) Platelet Count 251 10^3/uL (140-450) Mean Platelet Volume 9.3 fL (6.9-10.8) Neutrophils (%) (Auto) 56.8 % (37.0-80.0) Lymphocytes (%) (Auto) 30.5 % (10.0-50.0) Monocytes (%) (Auto) 6.8 % (0.0-12.0) Eosinophils (%) (Auto) 5.2 % (0.0-7.0) Basophils (%) (Auto) 0.7 % (0.0-2.0) Neutrophils # (Auto) 3.5 10 ^3/uL (1.6-8.6) Lymphocytes # (Auto) 1.9 10 ^3/uL (0.4-5.4) Monocytes # (Auto) 0.4 10 ^3/uL (0-1.3) Eosinophils # (Auto) 0.3 10 ^3/uL (0-0.8) Basophils # (Auto) 0 10 ^3/uL (0-0.2) Nucleated Red Blood Cells 0.1 % Sodium Level 147 mmol/L (136-145) Potassium Level 3.7 mmol/L (3.5-5.1) Chloride Level 108 mmol/L (98-107) Carbon Dioxide Level 32 mmol/L (20-31) Anion Gap 7 (5-15) Blood Urea Nitrogen 21 mg/dL (9-23) Creatinine 0.86 mg/dL (0.550-1.02) Glomerular Filtration Rate Calc 68 mL/min (>90) BUN/Creatinine Ratio 24.4 (10.0-20.0) Serum Glucose 92 mg/dL (74-106) Calcium Level 8.8 mg/dL (8.7-10.4) Total Bilirubin 0.4 mg/dL (0.2-1.0) Aspartate Amino Transferase (AST) 27 U/L (13-40) Alanine Aminotransferase (ALT) 19 U/L (7-40) Alkaline Phosphatase 165 U/L (46-116) Total Protein 5.6 g/dL (5.7-8.2) Albumin 3.2 g/dL (3.2-4.8) Urine Color Colorless (Yellow) Urine Clarity Clear (Clear) Urine pH 7.5 (5.0-9.0) Urine Specific Ewing 1.005 (1.001-1.035) Urine Protein Negative (Negative) Urine Ketones Negative (Negative) Urine Blood Negative /uL (Negative) Urine Nitrite Negative (Negative) Urine Bilirubin Negative (Negative) Urine Urobilinogen Normal mg/dL (Negative) Urine Leukocyte Esterase 2+ /uL (Negative) Urine RBC 1 /hpf (0 - 4) Urine Microscopic WBC 7 /HPF (0-5) Urine Squamous Epithelial Cells Few /hpf (<5) Urine Bacteria Few /hpf (None Seen) Urine Glucose Normal mg/dL (Normal) Troponin I High Sensitivity 4 ng/L (</=34) B-Type Natriuretic Peptide 22.95 pg/mL (0-100) Prealbumin 21.6 md/dL (10.0-40.0) Other Laboratory Tests 02/27/25 05:13 Brief Hx & Hospital Course: 79-year-old female with a known history of multiple sclerosis, chronic lymphedema of the bilateral legs, ovarian cancer status post total hysterectomy with a bilateral salpingo-oophorectomy, right breast cancer status post mastectomy presented to the hospital with a worsening leg swelling with a underlying chronic lymphedema found to have acute on chronic bilateral leg swelling with a chronic lymphedema. Patient was given IV diuretics. Cardiology was consulted who recommended no indication for diuretics as patient has a chronic lymphedema. Patient does say that she takes Bumex at home and it helps. Patient was given IV diuretics currently patient is stable to be discharged with a close follow up as an outpatient with the PCP. Also follow up with your exercise physiologist who did the previous surgery. Condition at Discharge: Stable Final Diagnosis/Problems List 79-year-old female with a known history of multiple sclerosis, chronic lymphedema of the bilateral legs, ovarian cancer status post total hysterectomy with a bilateral salpingo-oophorectomy, right breast cancer status post mastectomy presented to the hospital with a worsening leg swelling with a underlying chronic lymphedema found to have 1. Acute on chronic bilateral leg swelling with a underlying chronic lymphedema 2. Pulmonary venous congestion low suspicious for congestive heart failure 3. Chronic lymphedema of the bilateral legs 4. Ovarian cancer status post total hysterectomy with a bilateral salpingo-oophorectomy 5. Right breast cancer status post mastectomy 6. Multiple sclerosis Discharge Disposition: Home with Health Services [facility] Discharge Will this Physician continue t: No Discharge Instruct/Medications Diet: Cardiac 2g Na,low cholest Activity: No Restrictions, As Tolerated Follow Up/Referral: PCP in 1-2 weeks Follow up with the your own exercise physiologist in two weeks Medications: Resume home medications Scheduled Nitrofurantoin Monohydrate Mac (Macrobid), 100 MG PO BID Discharge Statement: "Patient was advised to return to the ER or call 911 if any headaches, dizziness, shortness of breath, chest pain, abdominal pain, bleeding, fevers, or worsening of medical condition. Patient was counseled about treatment plan, medications, possible side effects, patientverbalized understanding. All questions were answered to the best of my ability. This discharge took greater then 30 minutes in planning, reviewing documentation, counseling the patient, and discussing with other team members." ASSESSMENT ASSESSMENT Assessment 79-year-old female with a known history of multiple sclerosis, chronic lymphedema of the bilateral legs, ovarian cancer status post total hysterectomy with a bilateral salpingo-oophorectomy, right breast cancer status post mastectomy presented to the hospital with a worsening leg swelling with a underlying chronic lymphedema found to have 1. Acute on chronic bilateral leg swelling with a underlying chronic lymphedema 2. Pulmonary venous congestion low suspicious for congestive heart failure 3. Chronic lymphedema of the bilateral legs 4. Ovarian cancer status post total hysterectomy with a bilateral salpingo- oophorectomy 5. Right breast cancer status post mastectomy 6. Multiple sclerosis Date of Service: Feb 28, 2025 Billing Provider: LYNETTE SIGALA MD Common Visit Codes: NOT BILLABLE LYNETTE SIGALA MD Feb 28, 2025 15:44
[2025-02-28] MEDS ORDERED: CEFD300C2 PO (15:45)
[2025-03-01 01:00] VITALS: BP 143/84; PULSE 85; RESP 18; TEMP 97.5; O2SAT 100
[2025-03-01 05:00] VITALS: BP 133/73; PULSE 87; RESP 18; TEMP 97.7; O2SAT 99
== END 2025-03-01 06:40 | disposition home health service (06) | DRG 606 ==
LOC: EDBD 09:02 → ER 09:02 → OVERFLOW 13:28 → TELE-WESTW 16:30
PROVIDERS: ADMIT Student in an Organized Health Care Education/Training Program; ATTEND Student in an Organized Health Care Education/Training Program
DX: I89.0 Lymphedema, not elsewhere classified (principal); J12.9 Viral pneumonia, unspecified; I50.32 Chronic diastolic (congestive) heart failure; I16.0 Hypertensive urgency; I11.0 Hypertensive heart disease with heart failure; Z68.43 Body mass index [BMI] 50.0-59.9, adult; E03.9 Hypothyroidism, unspecified; E66.9 Obesity, unspecified; G35.D Multiple sclerosis, unspecified; I87.8 Other specified disorders of veins; Z90.710 Acquired absence of both cervix and uterus; Z90.11 Acquired absence of right breast and nipple; Z85.43 Personal history of malignant neoplasm of ovary; Z85.3 Personal history of malignant neoplasm of breast; Z83.3 Family history of diabetes mellitus; Z82.49 Family history of ischemic heart disease and other diseases of the circulatory system
CPT/HCPCS: 36415; 71045; 80048; 80053; 81001; 82040; 83880; 84484; 85025; 93005; 93306; 93970; 96374; 97116; 97163; 97164; 97530; 99291; 99292; G0378